=== PATIENT | male | born 1940 | race Caucasian/White ===

== ENCOUNTER 2023-04-18 09:02 | Outpatient (RCR) | payer MEDICARE, OTHER, SELFPAY ==
--- NOTE | 2023-04-18 16:49 | CON.ORTHO ---
Consultation - Orthopedics
History
Pt is now 4 months s/p left RSA. Has had increased erythema and induration of incision, and after discussion with his PT, we sent him to the ED. Has had increasing pain and discomfort for several weeks, no fevers/chills/sweats. Has had low energy,
but under care of painter chassis who are working up cardiac status.
Allergies / Home Medications
Allergy/AdvReac Type Severity Reaction Status Date / Time
carvedilol Allergy Unknown Verified 04/18/23 09:27
codeine Allergy Unknown Verified 04/18/23 09:27
hydrochlorothiazide Allergy lightheaded Verified 04/18/23 09:27
ness
metoprolol Allergy Unknown Verified 04/18/23 09:27
promethazine Allergy Unknown Verified 04/18/23 09:27
propranolol Allergy lightheaded Verified 04/18/23 09:27
ness
Sulfa (Sulfonamide Allergy SEE BELOW Verified 04/18/23 09:27
Antibiotics)
sulfamethoxazole Allergy SEE BELOW Verified 04/18/23 09:27
Medication Instructions Recorded
ascorbic acid (vitamin C) 500 mg 500 mg PO DAILY Supplement 11/16/19
tablet (Vitamin C)
cholecalciferol (vitamin D3) 25 1,000 unit PO DAILY Supplement 11/16/19
mcg (1,000 unit) capsule (Vitamin
D3)
cyanocobalamin (vitamin B-12) 2,500 mcg PO DAILY Supplement 11/16/19
2,500 mcg tablet
vilazodone 40 mg tablet (Viibryd) 40 mg PO DAILY Mental 11/16/19
Health/Anxiety
aripiprazole 5 mg tablet (Abilify) 5 mg PO DAILY Mental Health/Anxiety 01/22/21
dapagliflozin propanediol 10 mg 10 mg PO DAILY Heart Failure 01/22/21
tablet (Farxiga)
Super Clense 1 tab PO DAILY Supplement 12/23/22
atorvastatin 10 mg tablet 10 mg PO HS High Cholesterol 12/23/22
linaclotide 72 mcg capsule 72 mcg PO DAILY constipation 12/23/22
(Linzess)
acetaminophen 500 mg tablet 1,000 mg PO Q6H pain 01/15/23
(Acetaminophen Extra Strength)
clonazepam 0.5 mg tablet 0.25 mg PO BIDPRN PRN anxiety 01/15/23
hydromorphone 2 mg tablet 2 mg PO Q6HPRN PRN moderate-severe 01/15/23
(Dilaudid) pain
apixaban 5 mg tablet (Eliquis) 5 mg PO BID 30 days #60 tabs 01/18/23
polyethylene glycol 3350 17 gram 17 g PO DAILY 30 days #30 ea 01/18/23
oral powder packet (HealthyLax)
coQ10 (ubiquinol) 100 mg capsule 200 mg PO DAILY Supplement 02/13/23
multivitamin 1 tab PO DAILY Supplement 02/13/23
furosemide 80 mg tablet 80 mg PO DAILY PRN Fluid 02/19/23
retention/Swelling #0 tabs
sacubitril 49 mg-valsartan 51 mg 1 tab PO BID #60 tabs 02/19/23
tablet (Entresto)
cephalexin 500 mg capsule 500 mg PO QID #40 caps 04/18/23
Vital Signs / Lab Results
Left shoulder has tender, indurated wound. distal neuro vasc intact
Aspirated incision and obtained 5 ml purulent appearing fluid. Sent to lab for cultures.
Assessment / Plan
While he is not toxic, and relatively comfortable, I am concerned about a possible PJI. We will await culture results, if positive, will recommend revision surgery. Follow up in one week. Will start abx treatment now that cultures have been
obtained.
== END 2023-04-18 23:59 | disposition home or self-care (01) ==
LOC: RPT 09:02
PROVIDERS: ATTENDING PHYSICIAN Specialist; FAMILY PHYSICIAN Internal Medicine Geriatric Medicine
DX: Z47.1 Aftercare following joint replacement surgery (principal); I89.0 Lymphedema, not elsewhere classified; R26.2 Difficulty in walking, not elsewhere classified; Z73.6 Limitation of activities due to disability; M25.512 Pain in left shoulder; M62.81 Muscle weakness (generalized); Z96.612 Presence of left artificial shoulder joint
CPT/HCPCS: 97110; 97140; 97530

== ENCOUNTER 2023-04-29 06:32 | Inpatient (IN) | payer MEDICARE, OTHER, SELFPAY ==
[2023-04-29] VITALS (11 sets, daily range): BP systolic 114–146; BP diastolic 82–96; BMI 29.1
[2023-04-29] MEDS: TYLENOL 1000 MG PO (12:51)
[2023-04-29 13:08] LABS: Glucose - Point of Care 96 mg/dl (70-99)
--- NOTE | 2023-04-29 13:49 | TRANSFER ---
Pt brought to OR holding. Pt on monitor, [employer] came and turned off device. Report given, pt on monitor. PASSENGER INTERLINE CLERK @ bedside.
[2023-04-29] MEDS: DILAUDID 0.5 MG IV (17:54)
[2023-04-29] MEDS: NSS 1000 IV (18:14)
--- NOTE | 2023-04-29 18:33 | PTCARENOTE ---
Pt arrived to [facility] from PACU s/p L shoulder revision/ L shoulder NWB, aquacel with abd pads and tape, sling in place. NV intact. Pt drowsy but AAOx3. pt denies pain at this time. Pt oriented to call delvalle and room, bed locked and in lowest
position, call delvalle within reach.
[2023-04-29] MEDS: TYLENOL PO (19:58)
[2023-04-29] MEDS: FARXIGA PO (19:58)
[2023-04-29] MEDS: ASPIRIN 325 MG PO (20:01)
[2023-04-29] MEDS: BACTROBAN 2% OINTMENT 1 APPLIC NASAL (20:01)
[2023-04-29] MEDS: KLONOPIN 0.25 MG PO (20:54)
[2023-04-29] MEDS: ELIQUIS 2.5 MG PO (20:54)
[2023-04-29] MEDS: COLACE 100 MG PO (20:54)
[2023-04-29] MEDS: ULTRAM 50 MG PO (20:54)
[2023-04-29] MEDS: TYLENOL 650 MG PO (20:54)
[2023-04-29] MEDS: ENTRESTO 49 MG/51 MG 1 TAB PO (20:55)
[2023-04-29] MEDS: SENOKOT 17.1999999999999993 MG PO (20:55)
[2023-04-29] MEDS: ANCEF 5 IV (21:14)
[2023-04-29] MEDS: CRESTOR 10 MG PO (21:16)
[2023-04-29] MEDS: NEURONTIN 300 MG PO (21:16)
[2023-04-30] VITALS (7 sets, daily range): BP systolic 103–165; BP diastolic 64–90; PULSE 83; O2SAT 94
[2023-04-30] MEDS: TYLENOL 650 MG PO ×6 (00:12→21:02)
[2023-04-30] MEDS: ANCEF 5 IV (05:52)
[2023-04-30] MEDS: LINZESS PO (05:55)
[2023-04-30] MEDS: ELIQUIS 2.5 MG PO ×2 (09:03→21:02)
[2023-04-30] MEDS: KLONOPIN 0.25 MG PO ×2 (09:03→21:03)
[2023-04-30] MEDS: BACTROBAN 2% OINTMENT 1 APPLIC NASAL ×2 (09:03→21:09)
[2023-04-30] MEDS: COLACE 100 MG PO ×2 (09:03→21:02)
[2023-04-30] MEDS: ASPIRIN 325 MG PO (09:04)
[2023-04-30] MEDS: ULTRAM 50 MG PO ×2 (09:05→19:44)
[2023-04-30] MEDS: SENOKOT 17.1999999999999993 MG PO ×2 (09:05→21:02)
[2023-04-30] MEDS: ABILIFY 5 MG PO (09:06)
[2023-04-30] MEDS: ENTRESTO 49 MG/51 MG 1 TAB PO ×2 (09:06→21:05)
[2023-04-30] MEDS: FARXIGA 10 MG PO (09:06)
[2023-04-30] MEDS: STERILE WATER FOR INJECTION 20 ML IV (09:09)
[2023-04-30] MEDS: ROCEPHIN 2000 MG IV (09:09)
--- NOTE | 2023-04-30 09:22 | CON.ID ---
Consultation
-
Date/Time Consultation Requested: April 29, 2023 1245
Date/Time Consultation Performed: April 30, 2023 0920
Requesting Provider: Dr. Clifford Nunez
Performing Provider: Dr. Vlima Mcfarlane
Reason for Consultation: shoulder PJI
Chief Complaint / Past History
Chief Complaint
shoulder infection
History of Present Illness
82-year-old male with history of bioprosthetic aortic valve replacement, A-fib, pacemaker/ICD the placement, who recently underwent left shoulder reverse arthroplasty on January 10, 2023. Per , he immediately had issues with the left shoulder
and arm which was significantly edematous, black and blue. No fevers or chills. However he felt malaise. He was going to physical therapy. The left upper extremity edema eventually improved. PT noted erythema and a fluctuant induration over the
left shoulder incision. On April 18 he was sent to the ER. Ortho aspirated the joint. Subsequently the culture came back positive for Cutibacterium acne. Yesterday he underwent 1 stage left total shoulder revision of both the humeral and
glenoid components. OR report only minimal purulent material encountered, joint looked healthy. Today patient reports postop pain well-tolerated. He has no other complaints.
Past History
Additional Past Medical History:
Mild COPD.
Hypertension.
HFrEF
Tissue aortic valve replacement complicated by
� � sternal dehiscence, status post repair.
Afib
Pacemaker and defibrillator placement.
Non-obstructive CAD
Hypertension.
Depression.
Hernia repair.
Bilateral total hip replacement.
Left shoulder reverse arthroplasty (01/10/23)
Two parathyroidectomies.
Partial thyroidectomy.
Allergy History:
carvedilol Allergy (Verified 04/29/23 15:39)
DEPRESSION
codeine Allergy (Verified 04/29/23 15:39)
SEDATED
hydrochlorothiazide Allergy (Verified 04/29/23 15:39)
Unknown
metoprolol Allergy (Verified 04/29/23 15:39)
DEPRESSION
promethazine Allergy (Verified 04/29/23 15:39)
SEDATED
Sulfa (Sulfonamide Antibiotics) Allergy (Verified 04/29/23 15:39)
Unknown
Medications Reviewed: Yes
Current Antibiotics:
cefazolin
Social History
Tobacco: Non-Smoker
Alcohol: None
Drug: None
Personal:
Employment: Employed
Family History
Family History: Not Pertinent
Review of Systems
Review of Systems
General: Negative Fever, Chills or Change in Appetite
HEENT: Pharyngitis (mild post-op); Negative Sinus Problems or Headache
Cardiovascular: Negative Chest Pain
Respiratory: Negative Dyspnea, Cough or Sputum Production
Gasteroenterology: Other (no diarrhea); Negative Nausea or Vomiting
Genital / Urological: Negative Dysuria or Flank Pain
Endocrine: Weakness; Negative Fatigue
Skin / Hair / Nails: Negative Rash
Neurological: Negative Headache or Dizziness
All systems: All other systems were reviewed and were negative
Vital Signs
Temp Pulse Resp BP Pulse Ox
97.8 F 82 17 143/83 91
04/30/23 07:02 04/30/23 07:02 04/30/23 07:02 04/30/23 07:02 04/30/23 07:02
Physical Exam
Physical Exam
Constitutional: No Acute Distress and Comfortable
Eyes: No Conjunctival Hemorrhage and Sclera Anicteric
Cardiovascular: Regular Rate and S1/S2
Pulmonary: Clear
Gastrointestinal: Soft, Non Tender and Non Distended
Genito-Urinary: Negative CVA Tenderness
Extremities: Negative Edema
Wound: Other (left shoulder dressing dry)
Neurological: AO x 3
Microbiology Results
Micro:
04/29/23 18:20 Wound Culture - Pending
Joint Gram Stain - Preliminary
04/29/23 18:20 Anaerobic Culture - Pending
Joint
Assessment / Plan
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
-04/19/22 s/p 1 stage revision
- Start ceftriaxone 2gIV q24h x 6 weeks through 06/10/23, then another 6 weeks po abx.
follow weekly CRP, CBC, CMP
- Ordered PICC.
- Home infusion sheet submitted to Game Designer/Creative Director.
[2023-04-30] MEDS: ROXICODONE 5 MG PO ×2 (10:29→16:24)
--- NOTE | 2023-04-30 10:31 | W.PN.ORTHO ---
Today's Communication / Plan
-
d/c when stable
Assessment
.
Distal Motor Intact: Yes
Dressing:
Clean, dry and intact.
Assessment:
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
L Reverse TSA 01/10/23
--04/18/23 labs: ESR 15, CRP 13.40--will trend
--P. acnes on pre-op culture-intraoperative culture pending--ID consulted-on Rocephin
Persistent Afibb
AVR-tissue
[id number]
LBBB
BivICD
LY-LVzFT-26-45% by echo 01/2023-monitor daily weight--IVF rate reduced and now d/c---continue Entresto, Farxiga-Lasix prn
-stable on tele
Plan
.
Surgery / Date: L TSA Revision 04/29/23-Dr. Nunez
DVT Prophylaxis: Other (Eliquis 2.5mg bid--on POD#3-resume 5mg bid dosing)
Activity:
Out of bed.
PT/OT
Discharge Plan: Home w/ VN
Subjective
.
.:
Patient resting comfortably.
Vital Signs and Labs
.
Vital Signs and Labs:
Temp Pulse Resp BP Pulse Ox
97.8 F 82 17 143/83 91
04/30/23 07:02 04/30/23 07:02 04/30/23 07:02 04/30/23 07:02 04/30/23 07:02
Non-invasive Hgb result: 14.5
Physical Exam
-
HEENT: No pallor, cyanosis, or jaundice. Throat clear.
NECK: Supple. No JVD.
RESPIRATORY: Lungs clear to auscultation.
CVS: S1, S2 irreg.� No murmur, rub or gallop.
ABDOMEN: Soft, non-tender. No distension. BS+/normal.
EXTREMITIES: strength equal, no calf pain with palpation
INGOT STRIPPER: AOx3. No focal deficits. evaluation analyst grossly intact
--- NOTE | 2023-04-30 10:44 | CM ---
Addendum entered by Demetria Fontenot 04/30/23 16:22:
Per Sarika from [facility], patient has a $250.00 deductible; then covered 80%
Once out of pocket is met patient is covered @ 100%
Most likely after hospitalization, no out of pocket expense will be incurred
Addendum entered by Demetria Fontenot 04/30/23 13:32:
Home Care referral to [facility] accepted by the [facility] Office
Addendum entered by Demetria Fontenot 04/30/23 12:23:
CM spoke with Sarika from [facility] via phone; clinicals and demographics faxed to #[phone]
[facility]
Original Note:
Met with patient at bedside; Initial Assessment and CM Consult complete
Pharmacy: [facility]
Family Physician: Abdullahi Ogden, [facility], #
Patient reports he lives with his in a [place] with Basement; 3 steps to enter; 12 steps down to basement; bathroom has stall shower with seat and grab bar
PLOF: independent with ambulation; needs assistance with ADLs for the past 4 months; left arm in a sling; not able to drive
SNF/Rehab utilization history: none
Transport: will transport home via private car when stable
Per patient, PICC to be inserted today
Plan: discharge to home when medically stable with Home Infusion and VN; referral for home infusion sent to [facility]; VN referral sent to [facility]
[2023-04-30 11:38] LABS: INR 1.25; PT 15.8 Sec (11.4-14.6)
--- NOTE | 2023-04-30 16:39 | PTCARENOTE ---
Vascular access team called Rn. PADILLA to use PICC. Right peripheral discontinued.
[2023-04-30] MEDS: ROXICODONE 10 MG PO (21:03)
[2023-04-30] MEDS: CRESTOR 10 MG PO (21:09)
[2023-04-30] MEDS: NEURONTIN 300 MG PO (21:09)
[2023-05-01] MEDS: TYLENOL PO (00:30)
[2023-05-01] MEDS: ROXICODONE 10 MG PO ×2 (02:47→06:46)
[2023-05-01 03:30] VITALS: BP 139/74
[2023-05-01] MEDS: TYLENOL 650 MG PO ×3 (04:08→12:01)
[2023-05-01 06:00] VITALS: BMI 30.6
[2023-05-01] MEDS: LINZESS 72 MCG PO (06:45)
[2023-05-01 07:40] VITALS: BP 128/77
[2023-05-01 07:44] LABS: Blood Urea Nitrogen 17 mg/dl (9-20); Calcium 8.5 mg/dl (8.4-10.2); Carbon Dioxide 25 mmol/L (22-30); Chloride 106 mmol/L (98-107); Estimated Creatinine Clearance 72 ml/min; Glucose 93 mg/dl (70-99); Sodium 134 mmol/L (135-145); eGFR > 60.00
[2023-05-01] MEDS: ELIQUIS 2.5 MG PO (09:16)
[2023-05-01] MEDS: SENOKOT 17.1999999999999993 MG PO (09:16)
[2023-05-01] MEDS: COLACE 100 MG PO (09:16)
[2023-05-01] MEDS: KLONOPIN 0.25 MG PO (09:16)
[2023-05-01] MEDS: FARXIGA 10 MG PO (09:16)
[2023-05-01] MEDS: ASPIRIN 325 MG PO (09:16)
[2023-05-01] MEDS: ROCEPHIN 2000 MG IV (09:16)
[2023-05-01] MEDS: ENTRESTO 49 MG/51 MG 1 TAB PO (09:16)
[2023-05-01] MEDS: ULTRAM 50 MG PO (09:16)
[2023-05-01] MEDS: ABILIFY 5 MG PO (09:16)
[2023-05-01] MEDS: STERILE WATER FOR INJECTION 20 ML IV (09:17)
--- NOTE | 2023-05-01 09:33 | CM ---
Addendum entered by Demetria Fontenot 05/01/23 13:40:
IMM explained and signed
Addendum entered by Demetria Fontenot 05/01/23 10:06:
Patient can be discharged any time today; [facility] will deliver infusion equipment after 5 PM today
Care Team RN notified via [place] [facility]
Addendum entered by Demetria Fontenot 05/01/23 09:36:
Plan: Discharge to Home today; will provide transport
Fax Discharge Summary to [facility]; [facility] Office; fax #[phone]
Original Note:
Plan: Discharge to Home today with services from [facility] and [facility]
Clinicals faxed to [facility] # [phone]; and [facility] #[phone]
--- NOTE | 2023-05-01 10:39 | W.PN.ID1 ---
Date of Service
Date of Service: May 01, 2023
Today's Communication
OK for dc from ID standpoint.
Assessment / Plan
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
-04/19/22 s/p 1 stage revision
- Start ceftriaxone 2gIV q24h x 6 weeks through 06/10/23, then another 6 weeks po abx.
follow weekly CRP, CBC, CMP
-Home Infusion set up.
-OK for dc from ID standpoint.
-Follow-up with me in 4 to 6 weeks.
#Additional Past Medical History:
Mild COPD.
Hypertension.
HFrEF
Tissue aortic valve replacement complicated by
� � sternal dehiscence, status post repair.
Afib
Pacemaker and defibrillator placement.
Non-obstructive CAD
Hypertension.
Depression.
Hernia repair.
Bilateral total hip replacement.
Left shoulder reverse arthroplasty (01/10/23)
Two parathyroidectomies.
Partial thyroidectomy.
Chief Complaint
-: Other (PJI)
Subjective / Review of Systems
+ Post-op pain
Vital Signs / Physical Exam
Vital Signs
Vital Signs
Temp Pulse Resp BP Pulse Ox
97.4 F 82 18 128/77 94
05/01/23 07:40 05/01/23 07:40 05/01/23 07:40 05/01/23 07:40 05/01/23 07:40
Physical Exam
Constitutional: No Acute Distress
Cardiovascular: Regular Rate and S1/S2
Pulmonary: Clear
Gastrointestinal: Non Tender, Non Distended and Normal Bowel Sounds
Extremities: Negative Edema
Neurological: AO x 3
Lines: PICC (RUE intact)
Objective Data
Lab Data
Lab Results
05/01/23 06:21
PT 15.8 Sec (11.4-14.6) H 04/30/23 11:03
INR 1.25 04/30/23 11:03
Estimated Creat Clear 72 ml/min 05/01/23 06:21
Most recent labs reviewed.
Micro Results:
04/29/23 18:20 Wound Culture - Preliminary
Joint No growth
Gram Stain - Preliminary
04/29/23 18:20 Anaerobic Culture - Preliminary
Joint Culture pending. Anaerobic cultures are examined after 3
days incubation. Additional information to follow.
[2023-05-01 11:01] VITALS: BMI 30.9
--- NOTE | 2023-05-01 11:16 | W.PN.ORTHO ---
Today's Communication / Plan
-
d/c
Assessment
.
Distal Motor Intact: Yes
Dressing:
Clean, dry and intact.
Assessment:
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
L Reverse TSA 01/10/23
--04/18/23 labs: ESR 15, CRP 13.40--will trend weekly w/ CMP OP
--P. acnes on pre-op culture-intraoperative final culture pending--IV Rocephin x 6 weeks, then oral suppression-f/u ID 4 weeks
Persistent Afibb
AVR-tissue
[id number]
LBBB
BivICD
WF-RRdWB-83-45% by echo 01/2023---IVF rate reduced and now d/c--weight up >5lbs -Lasix 20mg IV then resume as previous at home-asymptomatic, no clinical indication of acute volume overload--continue Entresto, Farxiga
-stable on tele
Plan
.
Surgery / Date: L TSA Revision 04/29/23-Dr. Nunez
DVT Prophylaxis: Other (Eliquis)
Activity:
Out of bed.
PT/OT
Discharge Plan: Home w/ VN
Subjective
.
.:
Patient resting comfortably.
Vital Signs and Labs
.
Vital Signs and Labs:
Lab Results
05/01/23 06:21
Temp Pulse Resp BP Pulse Ox
97.4 F 82 18 128/77 94
05/01/23 07:40 05/01/23 07:40 05/01/23 07:40 05/01/23 07:40 05/01/23 07:40
PT 15.8 Sec (11.4-14.6) H 04/30/23 11:03
INR 1.25 04/30/23 11:03
Non-invasive Hgb result: 14.5
Physical Exam
-
HEENT: No pallor, cyanosis, or jaundice. Throat clear.
NECK: Supple. No JVD.
CVS: S1, S2 i.� Irreg.
ABDOMEN: Soft, non-tender. No distension. BS+/normal.
EXTREMITIES: strength equal, no calf pain with palpation
CERTIFIED CYTOTECHNOLOGIST: AOx3. No focal deficits. croze cutter grossly intact
--- NOTE | 2023-05-01 11:37 | W.DS.TRANS ---
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
-
Discharge Instructions:
Discharge Diagnosis/Procedures PJI--L TSA Revision Dr. Nunez 04/29/23
Diet As tolerated,Restrict fluids to 64 oz
Activity No strenuous activity
Driving Restrictions No driving
Blood Work CRP, ESR, CMP--result to Dr. Vilma Mcfarlane ID
Other Services VN
Specialty Instructions Weigh Daily
Instructions:
Stand-Alone Forms: Total Shoulder Replacement D/C
Changes to Home Medications: Yes
Discharge Medications:
DC Medications w/original date entered in [facility]
ascorbic acid (vitamin C) 500 mg tablet (Vitamin C) 500 mg PO DAILY Supplement 11/16/19
cholecalciferol (vitamin D3) 25 mcg (1,000 unit) capsule (Vitamin D3) 1,000 unit PO DAILY Supplement 11/16/19
cyanocobalamin (vitamin B-12) 2,500 mcg tablet 2,500 mcg PO DAILY Supplement 11/16/19
vilazodone 40 mg tablet (Viibryd) 40 mg PO DAILY Mental Health/Anxiety 11/16/19
aripiprazole 5 mg tablet (Abilify) 5 mg PO DAILY Mental Health/Anxiety 01/22/21
dapagliflozin propanediol 10 mg tablet (Farxiga) 10 mg PO DAILY Heart Failure 01/22/21
linaclotide 72 mcg capsule (Linzess) 72 mcg PO DAILY constipation 12/23/22
clonazepam 0.5 mg tablet 0.25 mg PO BIDPRN PRN anxiety 01/15/23
apixaban 5 mg tablet (Eliquis) 5 mg PO BID 30 days #60 tabs 01/18/23
multivitamin 1 tab PO DAILY Supplement 02/13/23
sacubitril 49 mg-valsartan 51 mg tablet (Entresto) 1 tab PO BID #60 tabs 02/19/23
rosuvastatin 10 mg tablet 10 mg PO HS High Cholesterol 04/28/23
polyethylene glycol 3350 17 gram oral powder packet (HealthyLax) 17 g PO DAILY Constipation 04/30/23
acetaminophen 500 mg tablet (Acetaminophen Extra Strength) 1,000 mg PO QID pain #0 tabs 05/01/23
ceftriaxone 2 gram solution for injection 2,000 mg IV Q24H Infection #42 ea 05/01/23
docusate sodium 100 mg capsule (Colace) 100 mg PO BID stool softner #1 cap 05/01/23
furosemide 80 mg tablet 80 mg PO PRN PRN Fluid retention/Swelling #0 tabs 05/01/23
gabapentin 300 mg capsule 300 mg PO HS sleep/pain #10 caps 05/01/23
magnesium hydroxide 400 mg/5 mL oral suspension (Milk of Magnesia) 30 ml PO HS PRN Constipation #1 mL 05/01/23
oxycodone 5 mg tablet 5 - 10 mg PO Q6HPRN PRN 1 tab moderate-2 tabs severe pain #30 tabs 05/01/23
sennosides 8.6 mg tablet (Senokot) 17.2 mg PO BID laxative #2 tabs 05/01/23
Home Medication Changes
ceftriaxone 2 gram solution for injection 2,000 mg IV Q24H Infection #42 ea 05/01/23
gabapentin 300 mg capsule 300 mg PO HS sleep/pain #10 caps 05/01/23
oxycodone 5 mg tablet 5 - 10 mg PO Q6HPRN PRN 1 tab moderate-2 tabs severe pain #30 tabs 05/01/23
Pending Results: Yes (Intraop final culture)
[2023-05-01] MEDS: LASIX 20 MG IV (12:01)
== END 2023-05-01 13:35 | disposition home health service (06) | DRG 483 ==
LOC: 2 SOUTH 06:32
PROVIDERS: Physician Assistant Medical; ADMITTING PHYSICIAN Specialist; CONSULT PHYSICIAN Internal Medicine Infectious Disease
PROC: 0RRK0JZ Replacement of Left Shoulder Joint with Synthetic Substitute, Open Approach (ICD-10-PCS; 2023-04-29)
PROC: 0RPK0JZ Removal of Synthetic Substitute from Left Shoulder Joint, Open Approach (ICD-10-PCS; 2023-04-29)
DX: T84.59XA Infection and inflammatory reaction due to other internal joint prosthesis, initial encounter (principal); I48.19 Other persistent atrial fibrillation; I42.9 Cardiomyopathy, unspecified; I50.22 Chronic systolic (congestive) heart failure; I25.10 Atherosclerotic heart disease of native coronary artery without angina pectoris; I44.7 Left bundle-branch block, unspecified; Y81.2 Prosthetic and other implants, materials and accessory general- and plastic-surgery devices associated with adverse incidents
CPT/HCPCS: 71045; 73020; 80048; 82962; 83036; 85025; 85610; 85652; 86140; 86850; 86900; 86901; 87070; 87075; 87076; 87205; 97110; 97165; 97535; C1713; C1776

== ENCOUNTER 2023-06-27 13:50 | Outpatient (RCR) | payer MEDICARE, OTHER, SELFPAY | END 2023-06-27 23:59 | disposition home or self-care (01) | LOC: RPT 13:50 | PROVIDERS: ATTENDING PHYSICIAN Specialist; FAMILY PHYSICIAN Internal Medicine Geriatric Medicine | DX: Z47.89 Encounter for other orthopedic aftercare (principal); Z47.1 Aftercare following joint replacement surgery (principal); I89.0 Lymphedema, not elsewhere classified; M25.512 Pain in left shoulder; R29.3 Abnormal posture; Z96.612 Presence of left artificial shoulder joint | CPT/HCPCS: 97110; 97140; 97162; 97530 ==

== ENCOUNTER 2023-07-24 18:58 | Outpatient (RCR) | payer MEDICARE, OTHER, SELFPAY | END 2023-07-24 23:59 | disposition home or self-care (01) | LOC: RPT 18:58 | PROVIDERS: ATTENDING PHYSICIAN Specialist; FAMILY PHYSICIAN Internal Medicine Geriatric Medicine | DX: Z47.89 Encounter for other orthopedic aftercare (principal); I89.0 Lymphedema, not elsewhere classified; M25.512 Pain in left shoulder; R29.3 Abnormal posture; Z96.612 Presence of left artificial shoulder joint | CPT/HCPCS: 97110; 97530 ==

== ENCOUNTER 2023-08-28 11:54 | Outpatient (RCR) | payer MEDICARE, OTHER, SELFPAY | END 2023-08-28 23:59 | disposition home or self-care (01) | LOC: RPT 11:54 | PROVIDERS: ATTENDING PHYSICIAN Specialist; FAMILY PHYSICIAN Internal Medicine Geriatric Medicine | DX: Z47.89 Encounter for other orthopedic aftercare (principal); I89.0 Lymphedema, not elsewhere classified; M25.512 Pain in left shoulder; R29.3 Abnormal posture; Z96.612 Presence of left artificial shoulder joint | CPT/HCPCS: 97110; 97530 ==

== ENCOUNTER 2023-09-11 16:27 | Outpatient (RCR) | payer MEDICARE, OTHER, SELFPAY | END 2023-09-11 23:59 | disposition home or self-care (01) | LOC: RPT 16:27 | PROVIDERS: ATTENDING PHYSICIAN Specialist; FAMILY PHYSICIAN Internal Medicine Geriatric Medicine | DX: Z47.89 Encounter for other orthopedic aftercare (principal); I89.0 Lymphedema, not elsewhere classified; M25.512 Pain in left shoulder; R29.3 Abnormal posture; Z96.612 Presence of left artificial shoulder joint | CPT/HCPCS: 97110; 97530 ==

== ENCOUNTER 2023-09-15 08:52 | Emergency (ER) | payer MEDICARE, OTHER, SELFPAY ==
[2023-09-15 09:00] VITALS: BP 149/90
--- NOTE | 2023-09-15 09:49 | ED.GENMED ---
History of Present Illness
General
Chief Complaint: Weakness
Source: patient and spouse
Exam Limitations: none
Time Seen by Provider: 09/15/23 09:28
Nursing documentation reviewed up to this point in time: agreed with
Travel History
Have you had any contact with someone who has COVID-19?: Yes
Comment: ukn
Do you have any symptoms of coronavirus? Fever > 100 degrees, chills, cough, shortness of breath, sore throat, loss of taste or smell, muscle aches, or headache?: Yes
Symptoms:: bodyache
History of Present Illness
History of Present Illness:
Patient is an 83-year-old male with history of sleep apnea COPD does not wear home O2 aortic stenosis CHF CAD pacemaker A-fib on Eliquis presents to the ER for evaluation. reports patient had cough for the past several days and has aches.
Tested positive for COVID yesterday and presents to the ER today with worsening shortness of breath and bodyaches. has had low grade fever.
She does report the patient's normal pulse ox is around 93% on room air.
Past History
Past History
ED Past Medical History: CHF, HTN, Hypercholesterolemia, Psychiatric (depression) and Other (Arthritis, the orthopedic felt replacement with a bio valve, left bundle branch block, cardiomyopathy, depression)
ED Past Surgical History: Cardiac (Aortic valve replaced) and Other (Hernia repair, aortic valve replacement with a bovine valve, sternal dehiscence with repeat operation, status post bilateral hip replacements)
Social History
Tobacco: Non-smoker
Alcohol: Occasional
Drug: None
Personal:
Living: with family
Family History
Family History: Other (Mother with rheumatoid arthritis)
Review of Systems
Review of Systems
Allergies reviewed?: Yes
All Other Systems: ROS reviewed and negative except as documented in HPI and ROS
Constitutional: Reports fatigue
Respiratory: Reports cough
Cardiac: Reports no symptoms
ABD/GI: Reports no symptoms
: Reports no symptoms
Musculoskeletal: Reports no symptoms
Skin: Reports no symptoms
Neurological: Reports no symptoms
Psychiatric: Reports no symptoms
Phy Exam
General Physical Exam
General Presentation: no apparent distress
General Skin: warm and dry
General Habitus: elderly
General Mental: alert
General Hydration: appears well hydrated
Cardiovascular Exam
Cardiovascular Exam: regular rate/rhythm
Pulmonary Exam
Pulmonary Exam: lungs clear, no respiratory distress and other (+ non productive cough )
Neurological Exam
Neurological Exam: alert and oriented x3
Musculoskeletal Exam
Musculoskeletal Exam: full ROM
Skin Exam
Skin Exam: normal color and warm/dry
Psychiatric Exam
Psychiatric Exam: normal mood/affect
Course
Orders/Labs/Results
Orders:
Orders
09/15/23 09:49
Electrocardiogram (*1) Stat
Reason for Study: Other
Other Reason for Exam: chest pain
EKG- Treatment ONCE
Chest [CR Chest - 2 Views ] Urgent
Comment:
Reason For Exam: SOB Covid +
09/15/23 09:51
Acetaminophen [Tylenol] 650 mg PO NOW STA
09/15/23 10:10
Basic Metabolic Panel Urgent
Complete Blood Count/With Diff Urgent
09/15/23 11:40
Potassium Urgent
Abnormal Lab Results
09/15/23
10:10
RDW 14.7 H %
(11.5-14.5)
Abs Immat Gran (auto) 0.1 H 10^3/uL
(0-0.05)
Absolute Lymphs (auto) 0.8 L 10^3/uL
(1.2-3.4)
Absolute Monos (auto) 1.3 H 10^3/uL
(0.1-0.6)
Immature Gran % 0.7 H %
(0-0.5)
Lymphocytes % 8.8 L %
(20.5-51.1)
Monocytes % 15.3 H %
(1.7-9.3)
09/15/23 10:10
09/15/23 11:40
Vital Signs
Initial and Last Documented VS:
Initial Vital Signs
Temp Pulse Resp BP Pulse Ox
100.6 F H 89 16 149/90 98
09/15/23 09:00 09/15/23 09:00 09/15/23 09:00 09/15/23 09:00 09/15/23 09:00
Last Documented Vital Signs
Temp Pulse Resp BP Pulse Ox
100.6 F H 89 16 149/90 98
09/15/23 09:00 09/15/23 09:00 09/15/23 09:00 09/15/23 09:00 09/15/23 09:00
MDM/Problems Addressed
MDM/Problems Addressed:
Patient is an 83-year-old male presents to the ER for evaluation. Patient has had COVID symptoms for the past several days tested positive yesterday. Patient does have a history of COPD has seen Him once in the past. He presents in no acute
distress. reports patient's pulse ox is normally 93% he has been 93 to 98% on room air here. He is in no acute distress he ambulated with no drop in pulse ox. Remained 93-95. His white count is normal there is no acute pneumonia on x-ray
his electrolytes are normal. Will DC with albuterol. reports that she does Dr. Ferro of pulmonology has given him an inhaler but is old. Will DC with albuterol inhaler as needed.
*Radiology
Radiology exam reviewed: radiology read reviewed
*Pulse Oximetry
Patient hypoxic: no
*Critical Care Note
Total Time (30-74mins, 75-104mins- exclusive of procedures): Not Applicable
ED Attending Note
-
Portions of this chart may have been created with voice recognition software.� Occasional wrong word or��sound alike� substitutions may have occurred due to the inherent limitations of voice recognition software.
Discharge Plan
Departure
Patient Disposition: Home (Routine Discharge)
Date of Disposition: 09/15/23
Time of Disposition: 12:33
Patient with high blood pressure during this ER visit?: Yes
Discharge Problem:
COVID-19
Instructions: COVID-19 ED, BLOOD PRESSURE
Prescriptions:
New
albuterol sulfate 90 mcg/actuation HFA aerosol inhaler
2 puff inhalation Q6H PRN (Reason: shortness of breath or wheezing) Qty: 6.7 0RF
No Action
ascorbic acid (vitamin C) [Vitamin C] 500 MG tablet
500 mg PO DAILY
cholecalciferol (vitamin D3) [Vitamin D3] 1,000 UNIT capsule
1,000 unit PO DAILY
vilazodone [Viibryd] 40 MG tablet
40 mg PO DAILY
cyanocobalamin (vitamin B-12) 2,500 MCG tablet
2,500 mcg PO DAILY
aripiprazole [Abilify] 5 MG tablet
5 mg PO DAILY
dapagliflozin propanediol [Farxiga] 10 MG tablet
10 mg PO DAILY
Linzess 72 mcg Capsule
72 mcg PO DAILY
clonazepam 0.5 mg Tablet
0.25 mg PO BIDPRN PRN (Reason: anxiety)
Patient Comments:
02/17/2023: last filled 01/03/23, 60 tabs for 30 days from [id number]
Eliquis 5 mg Tablet
5 mg PO BID 30 Days Qty: 60 0RF
multivitamin Tablet
1 tab PO DAILY
Entresto 49-51 mg Tablet
1 tab PO BID Qty: 60 0RF
rosuvastatin 10 mg Tablet
10 mg PO HS
polyethylene glycol 3350 [HealthyLax] 17 gram powder in packet
17 g PO DAILY
Rx Instructions:
hold if diarrhea
docusate sodium [Colace] 100 mg capsule
100 mg PO BID Qty: 1 0RF
magnesium hydroxide [Milk of Magnesia] 400 mg/5 mL suspension
30 ml PO HS PRN (Reason: Constipation) Qty: 1 0RF
gabapentin 300 mg capsule
300 mg PO HS Qty: 10 0RF
sennosides [Senokot] 8.6 mg tablet
17.2 mg PO BID Qty: 2 0RF
oxycodone 5 mg tablet
5 - 10 mg PO Q6HPRN PRN (Reason: 1 tab moderate-2 tabs severe pain) Qty: 30 0RF
Rx Instructions:
Dx surgery
ongoing therapy
Post-op use
acetaminophen [Acetaminophen Extra Strength] 500 mg tablet
1,000 mg PO QID Qty: 0 0RF
Rx Instructions:
DO NOT exceed >4000 mg daily.
furosemide 80 MG tablet
80 mg PO PRN PRN (Reason: Fluid retention/Swelling) Qty: 0 0RF
Rx Instructions:
gains 2-3 lbs overnight or 3-5 over a few days
*dose in am 05/02/23 at home*
ceftriaxone 2 gram Recon Soln
2,000 mg IV Q24H Qty: 42 0RF
Referrals:
Parrish Ferro MD [Active] -
Abdullahi Ogden MD [Family Provider] -
Activity Restrictions/Additional Instructions:
As discussed stay well-hydrated. Tylenol for fevers. You may use inhaler as needed. 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
return if any worsening of symptoms including shortness of breath.
Interventions
Interventions:
*General Assessment Last Done: 09/15/23 10:53
*Neglect/Abuse Screening Last Done: 09/15/23 10:53
ED- Fall Risk Assessment Last Done: 09/15/23 10:53
*ED COVID-19 Vaccine History Last Done: 09/15/23 09:00
ED- Cardiac Assessment Last Done: 09/15/23 10:53
ED- Neurological Assessment Last Done: 09/15/23 10:53
ED- Pulmonary Assessment Last Done: 09/15/23 10:53
Discharge Date and Time
Print Language: MAORI
[2023-09-15] MEDS: TYLENOL 650 MG PO (09:59)
[2023-09-15 10:27] LABS: % Basophils 0.3 % (0-2); % Eosinophils 0.5 % (0-6); % Immature Granulocytes 0.7 % (0-0.5); % Lymphocytes 8.8 % (20.5-51.1); % Monocytes 15.3 % (1.7-9.3); % Neutrophils 74.4 % (42.2-75.2); Absolute Immature Granulocytes 0.1 10^3/uL (0-0.05); Absolute Lymphocytes 0.8 10^3/uL (1.2-3.4); Absolute Monocytes 1.3 10^3/uL (0.1-0.6); Absolute Neutrophils 6.5 10^3/uL (1.4-6.5); Hematocrit 46.1 % (39.0-52.0); Hemoglobin 15.4 g/dL (13.0-18.0); Mean Corp Hgb Conc. 33.4 g/dL (33.0-37.0); Mean Corpuscular Hgb 29.4 pg (27.0-31.0); Mean Corpuscular Volume 88.1 fL (80.0-94.0); Mean Platelet Volume 9.3 fL (7.4-10.4); Nucleated Red Blood Cells % 0 % (-); Platelet Count 161 10^3/uL (130-400); Red Blood Cell Count 5.23 10^6/uL (4.70-6.10); Red Cell Dist. Width 14.7 % (11.5-14.5); White Blood Cell Count 8.7 10^3/uL (4.8-10.8)
[2023-09-15 10:39] LABS: Blood Urea Nitrogen 16 mg/dl (9-20); Calcium 8.8 mg/dl (8.4-10.2); Carbon Dioxide 26 mmol/L (22-30); Chloride 106 mmol/L (98-107); Glucose 95 mg/dl (70-99); Sodium 139 mmol/L (135-145); eGFR > 60.00
[2023-09-15 10:58] VITALS: BP 125/85
[2023-09-15 11:00] VITALS: BP 118/83
[2023-09-15 12:05] LABS: Potassium 3.8 mmol/L (3.5-5.1)
== END 2023-09-15 12:40 | disposition home or self-care (01) ==
LOC: EMR 08:52
PROVIDERS: Nurse Practitioner; EMERGENCY PHYSICIAN Emergency Medicine; FAMILY PHYSICIAN Internal Medicine Geriatric Medicine
DX: U07.1 COVID-19 (principal); G47.30 Sleep apnea, unspecified; I35.0 Nonrheumatic aortic (valve) stenosis; I11.0 Hypertensive heart disease with heart failure; I50.9 Heart failure, unspecified; I48.91 Unspecified atrial fibrillation; E78.00 Pure hypercholesterolemia, unspecified; F32.A Depression, unspecified; I42.9 Cardiomyopathy, unspecified; I44.7 Left bundle-branch block, unspecified; M19.90 Unspecified osteoarthritis, unspecified site; J44.9 Chronic obstructive pulmonary disease, unspecified; Z79.01 Long term (current) use of anticoagulants; Z95.3 Presence of xenogenic heart valve; Z96.643 Presence of artificial hip joint, bilateral; Z95.810 Presence of automatic (implantable) cardiac defibrillator; Z87.891 Personal history of nicotine dependence; Z85.828 Personal history of other malignant neoplasm of skin; Z85.850 Personal history of malignant neoplasm of thyroid; Z88.5 Allergy status to narcotic agent; Z88.2 Allergy status to sulfonamides; Z88.8 Allergy status to other drugs, medicaments and biological substances
CPT/HCPCS: 99283; 71046; 80048; 84132; 85025; 93005

== ENCOUNTER 2023-10-01 14:05 | Outpatient (RCR) | payer MEDICARE, OTHER, SELFPAY | END 2023-10-01 15:11 | disposition home or self-care (01) | LOC: RPT 14:05 | PROVIDERS: ATTENDING PHYSICIAN Specialist; FAMILY PHYSICIAN Internal Medicine Geriatric Medicine | DX: M25.512 Pain in left shoulder (principal); Z47.1 Aftercare following joint replacement surgery (principal); R29.3 Abnormal posture; I89.0 Lymphedema, not elsewhere classified; Z96.612 Presence of left artificial shoulder joint; Z47.89 Encounter for other orthopedic aftercare; Z86.16 Personal history of COVID-19 | CPT/HCPCS: 97530 ==

== ENCOUNTER 2023-10-02 08:27 | Emergency (ER) | payer MEDICARE, OTHER, SELFPAY ==
[2023-10-02 08:29] VITALS: BP 146/97
--- NOTE | 2023-10-02 08:50 | ED.GENMED ---
History of Present Illness
General
Chief Complaint: Breathing Problem
Source: patient
Exam Limitations: none
Time Seen by Provider: 10/02/23 08:41
Nursing documentation reviewed up to this point in time: agreed with
History of Present Illness
History of Present Illness:
Patient is an 83year-old male past medical history of left bundle branch block with pacemaker, defibrillator, aortic valve replacement on Eliquis CHF anxiety depression ,
mild COPD not on oxygen diagnosed with sleep apnea this week presents to the ER with worsening shortness of breath. reports patient centered breath the past 3 weeks but getting worse. Patient reports he was very short of breath this morning.
11 home at bedside reports patient does have anxiety and there is a component of mild shortness of breath all the time but this has been getting worse over the past week. Patient denies any chest pain. He reports he feels shortness of breath
even with rest.
He did have COVID 2 weeks ago denies any recent fever or chills. Mild cough. Patient used to wear oxygen at nighttime but stopped using it
Patient does not wear oxygen. Patient's room pulse ox is around 93%.
Past History
Past History
ED Past Medical History: CHF, HTN, Hypercholesterolemia, Psychiatric (depression) and Other (Arthritis, the orthopedic felt replacement with a bio valve, left bundle branch block, cardiomyopathy, depression)
ED Past Surgical History: Cardiac (Aortic valve replaced) and Other (Hernia repair, aortic valve replacement with a bovine valve, sternal dehiscence with repeat operation, status post bilateral hip replacements)
Social History
Tobacco: Non-smoker
Alcohol: Occasional
Drug: None
Personal:
Living: with family
Family History
Family History: Other (Mother with rheumatoid arthritis)
Review of Systems
Review of Systems
Allergies reviewed?: Yes
All Other Systems: ROS reviewed and negative except as documented in HPI and ROS
Constitutional: Denies fever
EENT: Reports no symptoms
Respiratory: Reports cough and trouble breathing
Cardiac: Reports no symptoms
ABD/GI: Reports no symptoms
: Reports no symptoms
Musculoskeletal: Reports no symptoms
Skin: Reports no symptoms
Neurological: Reports no symptoms
Psychiatric: Reports no symptoms
Phy Exam
General Physical Exam
General Presentation: no apparent distress
General age: appears stated age
General Skin: warm and dry
General Habitus: normal
General Mental: alert
General Hydration: appears well hydrated
Cardiovascular Exam
Cardiovascular Exam: regular rate/rhythm, no murmur and normal peripheral pulses
Neurological Exam
Neurological Exam: alert and oriented x3
Musculoskeletal Exam
Musculoskeletal Exam: full ROM
Skin Exam
Skin Exam: normal color and warm/dry
Psychiatric Exam
Psychiatric Exam: normal mood/affect
Course
Orders/Labs/Results
Orders:
Orders
10/02/23 09:04
Electrocardiogram (*1) Stat
Reason for Study: Other
Other Reason for Exam: chest pain
Cardiac Monitoring- Treatment ONCE
EKG- Treatment ONCE
IV Insert/Care/Rem.- Treatment PRN
CR Chest - 2 Views Urgent
Comment:
Reason For Exam: sob
10/02/23 09:23
Complete Blood Count/With Diff Urgent
Comprehensive Metabolic Panel Urgent
NT-proBNP Urgent
Troponin I Urgent
Abnormal Lab Results
10/02/23
09:23
RDW 15.1 H %
(11.5-14.5)
Absolute Monos (auto) 1.0 H 10^3/uL
(0.1-0.6)
Lymphocytes % 17.2 L %
(20.5-51.1)
Monocytes % 12.4 H %
(1.7-9.3)
BUN 26 H mg/dl
(9-20)
Total Bilirubin 1.4 H mg/dl
(0.2-1.3)
10/02/23 09:23
10/02/23 09:23
Vital Signs
Initial and Last Documented VS:
Initial Vital Signs
Temp Pulse Resp BP Pulse Ox
98.4 F 72 18 146/97 93
10/02/23 08:29 10/02/23 08:29 10/02/23 08:29 10/02/23 08:29 10/02/23 08:29
Last Documented Vital Signs
Temp Pulse Resp BP Pulse Ox
98.4 F 81 27 138/94 92
10/02/23 08:29 10/02/23 10:00 10/02/23 10:00 10/02/23 10:00 10/02/23 10:45
MDM/Problems Addressed
Differential Diagnosis Includes:
Acute
MDM/Problems Addressed:
As documented patient is a 83-year-old male with significant history, cardiology pulmonology presents for shortness of breath worse over the past several weeks, However worse today. Patient has a history of sleep apnea and used to wear oxygen but
stopped it over a year ago. Patient is followed by pulmonary as well as cardiology. Patient presents here awake alert in no acute distress minimally anxious pulse ox between 90 to 93% which reports is normal. He reports he feels slightly better
here however he was very short of breath this morning. He has no history of being on a diuretic, his BNP is 1730 however chest x-ray negative.
Patient did ambulate pulse ox runs still between 90 to 93%. He does not feel however that he go home with symptoms of shortness of breath he feels that he would just come back tomorrow or even later today because of persistent symptoms. No acute
findings on EKG. troponin baseline, negative.
12pm as per admitting hospitalist , DR Domínguez, this admission would likely not be covered. I did speak with patient regarding this. He now does feel that he can go home however in order to ensure follow-up I will text cardiology for closer
follow-up. Patient remains in no acute distress here nontachypneic nonhypoxic nontachycardic.
12:13 d/c w/ DR Ritter can follow up as outpt
*Radiology
Radiology exam reviewed: radiology read reviewed
*Pulse Oximetry
Patient hypoxic: no
Data Reviewed
Review of Other/Old Records Reveals: Other (Echo from 2022 shows mild reduced LV systolic function left ventricular ejection fraction is 40-45% )
ED Attending Note
-
Portions of this chart may have been created with voice recognition software.� Occasional wrong word or��sound alike� substitutions may have occurred due to the inherent limitations of voice recognition software.
Discharge Plan
Departure
Patient Disposition: Home (Routine Discharge)
Date of Disposition: 10/02/23
Time of Disposition: 11:09
Patient with high blood pressure during this ER visit?: Yes
Covid-19: Not Applicable
Discharge Problem:
Acute dyspnea
Instructions: Shortness of Breath, Adult ED, Chest Pain CBC Follow Up
Prescriptions:
No Action
ascorbic acid (vitamin C) [Vitamin C] 500 MG tablet
500 mg PO DAILY
cholecalciferol (vitamin D3) [Vitamin D3] 1,000 UNIT capsule
1,000 unit PO DAILY
cyanocobalamin (vitamin B-12) 2,500 MCG tablet
2,500 mcg PO DAILY
aripiprazole [Abilify] 5 MG tablet
5 mg PO DAILY
dapagliflozin propanediol [Farxiga] 10 MG tablet
10 mg PO DAILY
Linzess 72 mcg Capsule
72 mcg PO DAILY@0600
clonazepam 0.5 mg Tablet
0.25 mg PO QIDPRN PRN (Reason: anxiety)
Patient Comments:
10/02/23: Pt and spouse state they were instructed by pt's physician to stop clonazepam since starting mirtazepine 15mg HS. Prior to stopping ~7 days ago, pt and spouse state pt typically would take 0.25mg QID
polyethylene glycol 3350 [HealthyLax] 17 gram powder in packet
17 g PO DAILY
Rx Instructions:
hold if diarrhea
atorvastatin 10 mg Tablet
10 mg PO DAILY
mirtazapine 15 mg Tablet
15 mg PO HS
Patient Comments:
10/02/23: Pt being transitioned from vilazodone to mirtazapine per patient and spouse. Mirtazapine started 6 days ago
vilazodone 10 mg Tablet
10 mg PO DAILY
Rx Instructions:
Taper off per provider. 10mg daily x4 days then stop
coQ10 (ubiquinol) 100 mg Capsule
200 mg PO DAILY
Belsomra 20 mg Tablet
20 mg PO HS
Patient Comments:
10/02/23: Per pt and spouse, started this 6 days ago for insomnia; received samples from physician
albuterol sulfate 90 mcg/actuation HFA aerosol inhaler
2 puff inhalation R Q6HPRN PRN (Reason: shortness of breath or wheezing)
Eliquis 5 mg tablet
5 mg PO BID
Entresto 49-51 mg tablet
1 tab PO BID
Referrals:
Abdullahi Ogden MD [Family Provider] -
Jim Negron MD [Active] -
Activity Restrictions/Additional Instructions:
Follow-up with cardiology as soon as possible. Call tomorrow for appointment return if any worsening of symptoms
Interventions
Interventions:
*Risk Screen - Suicide Last Done: 10/02/23 08:29
*General Assessment Last Done: 10/02/23 08:29
*Neglect/Abuse Screening Last Done: 10/02/23 08:29
ED- Fall Risk Assessment Last Done: 10/02/23 09:18
*ED COVID-19 Vaccine History Last Done: 10/02/23 09:18
ED- Cardiac Assessment Last Done: 10/02/23 09:18
ED- Pulmonary Assessment Last Done: 10/02/23 09:18
Discharge Date and Time
Print Language: NIGERIEN
[2023-10-02 09:16] VITALS: BP 140/93
[2023-10-02 09:18] VITALS: BMI 29.0
[2023-10-02 09:31] LABS: % Basophils 0.8 % (0-2); % Eosinophils 2.7 % (0-6); % Immature Granulocytes 0.5 % (0-0.5); % Lymphocytes 17.2 % (20.5-51.1); % Monocytes 12.4 % (1.7-9.3); % Neutrophils 66.4 % (42.2-75.2); Absolute Basophils 0.1 10^3/uL (0-0.2); Absolute Eosinophils 0.2 10^3/uL (0-0.7); Absolute Lymphocytes 1.4 10^3/uL (1.2-3.4); Absolute Neutrophils 5.3 10^3/uL (1.4-6.5); Hematocrit 47.9 % (39.0-52.0); Hemoglobin 16.2 g/dL (13.0-18.0); Mean Corp Hgb Conc. 33.8 g/dL (33.0-37.0); Mean Corpuscular Hgb 29.6 pg (27.0-31.0); Mean Corpuscular Volume 87.6 fL (80.0-94.0); Nucleated Red Blood Cells % 0 % (-); Platelet Count 257 10^3/uL (130-400); Red Blood Cell Count 5.47 10^6/uL (4.70-6.10); Red Cell Dist. Width 15.1 % (11.5-14.5); White Blood Cell Count 7.9 10^3/uL (4.8-10.8)
[2023-10-02 09:51] VITALS: BP 129/94
[2023-10-02 10:00] VITALS: BP 138/94
[2023-10-02 10:01] LABS: NT-proBNP 1730 pg/ml; Troponin I 0.032 ng/ml
[2023-10-02 10:03] LABS: ALT (SGPT) 44 U/L (0-50); AST (SGOT) 39 U/L (17-59); Albumin 4.1 g/dl (3.5-5.0); Alkaline Phosphatase 77 U/L (38-126); Blood Urea Nitrogen 26 mg/dl (9-20); Calcium 9.7 mg/dl (8.4-10.2); Carbon Dioxide 26 mmol/L (22-30); Chloride 106 mmol/L (98-107); Estimated Creatinine Clearance 51 ml/min; Glucose 90 mg/dl (70-99); Potassium 4.4 mmol/L (3.5-5.1); Sodium 138 mmol/L (135-145); Total Bilirubin 1.4 mg/dl (0.2-1.3); Total Protein 6.9 g/dl (6.3-8.2); eGFR > 60.00
--- NOTE | 2023-10-02 12:29 | EDRN ---
Reviewed discharge instructions with patient. Verbalized understanding. Refused wheelchair when offered.
[2023-10-02 12:30] VITALS: BP 151/98
== END 2023-10-02 12:31 | disposition home or self-care (01) ==
LOC: EMR 08:27
PROVIDERS: Nurse Practitioner; EMERGENCY PHYSICIAN Emergency Medicine; FAMILY PHYSICIAN Internal Medicine Geriatric Medicine
DX: R06.00 Dyspnea, unspecified (principal); I44.7 Left bundle-branch block, unspecified; I11.0 Hypertensive heart disease with heart failure; I50.9 Heart failure, unspecified; E78.00 Pure hypercholesterolemia, unspecified; F32.A Depression, unspecified; I42.9 Cardiomyopathy, unspecified
CPT/HCPCS: 99283; 71046; 80053; 83880; 84484; 85025; 93005

== ENCOUNTER → 2023-10-20 08:04 | Outpatient (REF) | payer MEDICARE, OTHER, SELFPAY | LOC: HWRCS 08:04 | PROVIDERS: ATTENDING PHYSICIAN Internal Medicine Cardiovascular Disease; FAMILY PHYSICIAN Internal Medicine Geriatric Medicine | DX: I48.19 Other persistent atrial fibrillation (principal); R06.02 Shortness of breath; I50.20 Unspecified systolic (congestive) heart failure; U07.1 COVID-19 | CPT/HCPCS: 93306 ==

== ENCOUNTER → 2023-11-18 08:10 | Outpatient (REF) | payer MEDICARE, OTHER, SELFPAY ==
[2023-11-18 10:10] LABS: Albumin 4.2 g/dl (3.5-5.0); Blood Urea Nitrogen 17 mg/dl (9-20); Calcium 9.6 mg/dl (8.4-10.2); Carbon Dioxide 26 mmol/L (22-30); Chloride 103 mmol/L (98-107); Glucose 98 mg/dl (70-99); Phosphorus 3.6 mg/dl (2.5-4.5); Potassium 4.1 mmol/L (3.5-5.1); Sodium 137 mmol/L (135-145); eGFR > 60.00
== END ==
LOC: REG 08:10
PROVIDERS: ATTENDING PHYSICIAN Internal Medicine Cardiovascular Disease; FAMILY PHYSICIAN Internal Medicine Geriatric Medicine
DX: I50.20 Unspecified systolic (congestive) heart failure (principal); I10 Essential (primary) hypertension
CPT/HCPCS: 36415; 80069

== ENCOUNTER → 2024-01-05 07:11 | Outpatient (REF) | payer MEDICARE, OTHER, SELFPAY ==
[2024-01-05 08:08] LABS: NT-proBNP 686 pg/ml
[2024-01-05 08:27] LABS: Albumin 4.1 g/dl (3.5-5.0); Blood Urea Nitrogen 29 mg/dl (9-20); Calcium 9.3 mg/dl (8.4-10.2); Carbon Dioxide 26 mmol/L (22-30); Chloride 103 mmol/L (98-107); Glucose 103 mg/dl (70-99); Phosphorus 3.8 mg/dl (2.5-4.5); Sodium 142 mmol/L (135-145); eGFR 54.85
== END ==
LOC: REG 07:11
PROVIDERS: ATTENDING PHYSICIAN Internal Medicine Cardiovascular Disease; FAMILY PHYSICIAN Internal Medicine Geriatric Medicine
DX: I50.22 Chronic systolic (congestive) heart failure (principal)
CPT/HCPCS: 36415; 80069; 83880

== ENCOUNTER → 2024-01-30 07:57 | Outpatient (REF) | payer MEDICARE, OTHER, SELFPAY ==
[2024-01-30 09:18] LABS: HDL Cholesterol 55 mg/dl; LDL Cholesterol, Calculated 96 mg/dl; Total Cholesterol 175 mg/dl (50-199); Triglyceride 120 mg/dl (10-149); Very Low Density Lipoprotein 24 mg/dl (0-30)
== END ==
LOC: REG 07:57
PROVIDERS: ATTENDING PHYSICIAN Nurse Practitioner; FAMILY PHYSICIAN Internal Medicine Geriatric Medicine
DX: E78.00 Pure hypercholesterolemia, unspecified (principal)
CPT/HCPCS: 36415; 80061

== ENCOUNTER → 2024-03-09 13:26 | Outpatient (REF) | payer MEDICARE, OTHER, SELFPAY | LOC: RCS 13:26 | PROVIDERS: ATTENDING PHYSICIAN Internal Medicine Cardiovascular Disease; FAMILY PHYSICIAN Internal Medicine Geriatric Medicine | DX: E78.00 Pure hypercholesterolemia, unspecified (principal); I50.20 Unspecified systolic (congestive) heart failure | CPT/HCPCS: 93308; 93321; 93325 ==

== ENCOUNTER → 2024-03-17 14:04 | Outpatient (REF) | payer MEDICARE, OTHER, SELFPAY ==
[2024-03-17 15:04] LABS: Albumin 4.6 g/dl (3.5-5.0); Blood Urea Nitrogen 22 mg/dl (9-20); Calcium 9.8 mg/dl (8.4-10.2); Carbon Dioxide 26 mmol/L (22-30); Chloride 102 mmol/L (98-107); Glucose 83 mg/dl (70-99); Phosphorus 3.8 mg/dl (2.5-4.5); Potassium 4.2 mmol/L (3.5-5.1); Sodium 138 mmol/L (135-145); eGFR > 60.00
== END ==
LOC: REG 14:04
PROVIDERS: ATTENDING PHYSICIAN Internal Medicine Cardiovascular Disease; FAMILY PHYSICIAN Internal Medicine Geriatric Medicine
DX: I50.20 Unspecified systolic (congestive) heart failure (principal)
CPT/HCPCS: 36415; 80069

== ENCOUNTER → 2024-03-25 12:20 | Outpatient (REF) | payer MEDICARE, OTHER, SELFPAY ==
[2024-03-25 14:03] LABS: Albumin 4.2 g/dl (3.5-5.0); Blood Urea Nitrogen 34 mg/dl (9-20); Calcium 9.4 mg/dl (8.4-10.2); Carbon Dioxide 23 mmol/L (22-30); Chloride 102 mmol/L (98-107); Glucose 106 mg/dl (70-99); Potassium 4.1 mmol/L (3.5-5.1); Sodium 137 mmol/L (135-145); eGFR 50.18
== END ==
LOC: REG 12:20
PROVIDERS: ATTENDING PHYSICIAN Obstetrics & Gynecology; FAMILY PHYSICIAN Internal Medicine Geriatric Medicine; OTHER PHYSICIAN Internal Medicine Cardiovascular Disease
DX: I50.20 Unspecified systolic (congestive) heart failure (principal)
CPT/HCPCS: 36415; 80069

== ENCOUNTER → 2024-04-14 10:53 | Outpatient (REF) | payer MEDICARE, OTHER, SELFPAY ==
[2024-04-14 13:37] LABS: Albumin 4.3 g/dl (3.5-5.0); Blood Urea Nitrogen 20 mg/dl (9-20); Calcium 9.4 mg/dl (8.4-10.2); Carbon Dioxide 25 mmol/L (22-30); Chloride 103 mmol/L (98-107); Glucose 89 mg/dl (70-99); Phosphorus 3.4 mg/dl (2.5-4.5); Potassium 4.8 mmol/L (3.5-5.1); Sodium 139 mmol/L (135-145); eGFR > 60.00
== END ==
LOC: REG 10:53
PROVIDERS: ATTENDING PHYSICIAN Internal Medicine Cardiovascular Disease; FAMILY PHYSICIAN Internal Medicine Geriatric Medicine; REFERRING PHYSICIAN Internal Medicine Cardiovascular Disease
DX: I50.20 Unspecified systolic (congestive) heart failure (principal)
CPT/HCPCS: 36415; 80069

== ENCOUNTER 2024-05-28 13:39 | Outpatient (RCR) | payer MEDICARE, OTHER, SELFPAY | END 2024-05-28 23:59 | disposition home or self-care (01) | LOC: CRHB 13:39 | PROVIDERS: ATTENDING PHYSICIAN Internal Medicine Cardiovascular Disease; FAMILY PHYSICIAN Internal Medicine Geriatric Medicine | DX: I50.22 Chronic systolic (congestive) heart failure (principal) | CPT/HCPCS: G0422; G0423 ==

== ENCOUNTER → 2024-06-22 12:31 | Outpatient (REF) | payer MEDICARE, OTHER, SELFPAY ==
[2024-06-22 15:18] LABS: Vitamin B12 397 pg/ml (239-931)
== END ==
LOC: REG 12:31
PROVIDERS: FAMILY PHYSICIAN Internal Medicine Geriatric Medicine
DX: R41.3 Other amnesia (principal)
CPT/HCPCS: 36415; 82607

== ENCOUNTER → 2024-06-23 13:46 | Outpatient (REF) | payer MEDICARE, OTHER, SELFPAY | LOC: HWRAD 13:46 | PROVIDERS: ATTENDING PHYSICIAN Psychiatry & Neurology Sleep Medicine; FAMILY PHYSICIAN Internal Medicine Geriatric Medicine | DX: R41.3 Other amnesia (principal) | CPT/HCPCS: 70450 ==

== ENCOUNTER 2024-07-16 11:40 | Emergency (ER) | payer MEDICARE, OTHER, SELFPAY ==
--- NOTE | 2024-07-16 12:24 | ED.GENMED ---
History of Present Illness
General
Chief Complaint: Fall
Time Seen by Provider: 07/16/24 12:17
History of Present Illness
History of Present Illness:
TIME OF INITIAL ENCOUNTER: 12 PM
HPI: 6 days ago, while the patient was getting off the train, he missed a step and fell forward striking his knees injuring his chest and hips. He did not have much pain at that time. However he has been having left-sided point tenderness to the
anterior chest wall beneath the left breast region. He has upcoming procedures and medical evaluations for which she wanted to make sure that there was nothing else abnormal. He declines analgesia currently. He has no abdominal pain.
EXAM:
GENERAL: Well appearing in no distress
CERVICAL SPINE: No midline c-spine tenderness with excellent AROM
HEAD: No evidence of craniofacial trauma, bandage on the left side of the scalp consistent with recent Mohs procedure
CHEST: Mild to moderate point tenderness in the left anterior chest wall tenderness beneath the left breast tissue, normal heart sounds
LUNGS: Equal lung sounds, no respiratory distress
ABDOMEN: No abdominal tenderness, no peritoneal signs
EXTREMITIES: Normal active range of motion, no tenderness
NEURO: Excellent strength all extremities, appropriate mental status, normal speech/language
NUMBER AND COMPLEXITY OF PROBLEMS ADDRESSED AT THE ENCOUNTER
� Chronic conditions affecting care: Aortic stenosis, sleep apnea on inspire, COPD, HFrEF with EF of 20%, skin cancer
� Acute Exacerbation and/or Progression of Chronic Illness: This is an acute problem
� Differential Diagnosis includes: Chest wall contusion, rib fracture very unlikely, no abdominal pain or tenderness to suggest intra-abdominal pathology, highly doubt pneumothorax
AMOUNT AND/OR COMPLEXITY OF DATA TO BE REVIEWED AND ANALYZED
� I performed an independent evaluation of and my interpretation is:
EKG: V-paced 88, no significant change from 10/02/2023
CT:
X-rays: I personally viewed chest x-ray including left rib series and I see no clear sign of pneumothorax or rib fracture
Laboratory Studies:
Other:
� Review of other/old records: I reviewed records, the patient has been getting rehab for heart failure as of May 2024
� Clinical information was obtained by an independent historian: I spoke to the at bedside
� Prescriptions/Medications Considered but not given: Declines analgesia
� Further testing considered but not performed: No indication for CT imaging, no abdominal pain or tenderness
RISK OF COMPLICATIONS AND/OR MORBIDITY OR MORTALITY OF PATIENT MANAGEMENT
� Social determinants of health affecting care: Lives at home
� Discussion with other providers: Discussed with Dr. Connor who agrees that there is no fracture
� Escalation of care including admission/observation vs risk of discharge considered: The patient is very comfortable in appearance. He declines analgesia. Very low suspicion for serious injury. X-rays of the chest and ribs
obtained.
ANY OTHER UPDATES:
1:40 PM: On reassessment patient appears comfortable
Past History
Past History
ED Past Medical History: CHF, HTN, Hypercholesterolemia, Psychiatric (depression) and Other (Arthritis, the orthopedic felt replacement with a bio valve, left bundle branch block, cardiomyopathy, depression)
ED Past Surgical History: Cardiac (Aortic valve replaced) and Other (Hernia repair, aortic valve replacement with a bovine valve, sternal dehiscence with repeat operation, status post bilateral hip replacements)
Social History
Tobacco: Non-smoker
Alcohol: Occasional
Drug: None
Personal:
Living: with family
Family History
Family History: Other (Mother with rheumatoid arthritis)
Phy Exam
Physical Exam
Physical Exam:
See HPI
Course
Orders/Labs/Results
Orders:
Orders
07/16/24 11:42
EKG [Electrocardiogram (*1)] Urgent
Reason for Study: Other
Other Reason for Exam: rib pain
EKG- Treatment ONCE
Ribs, Left 3 View W/PA Chest CR [CR Ribs-left 3 Vw W/pa Chest] Urgent
Comment:
Reason For Exam: fall last weekend
*Critical Care Note
Total Time (30-74mins, 75-104mins- exclusive of procedures): Not Applicable
ED Attending Note
-
Portions of this chart may have been created with voice recognition software.� Occasional wrong word or��sound alike� substitutions may have occurred due to the inherent limitations of voice recognition software.
Discharge Plan
Departure
Prescriptions:
No Action
ascorbic acid (vitamin C) [Vitamin C] 500 MG tablet
500 mg PO DAILY
cholecalciferol (vitamin D3) [Vitamin D3] 1,000 UNIT capsule
1,000 unit PO DAILY
cyanocobalamin (vitamin B-12) 2,500 MCG tablet
2,500 mcg PO DAILY
aripiprazole [Abilify] 5 MG tablet
5 mg PO DAILY
dapagliflozin propanediol [Farxiga] 10 MG tablet
10 mg PO DAILY
Linzess 72 mcg Capsule
72 mcg PO DAILY@0600
clonazepam 0.5 mg Tablet
0.25 mg PO QIDPRN PRN (Reason: anxiety)
Patient Comments:
10/02/23: Pt and spouse state they were instructed by pt's physician to stop clonazepam since starting mirtazepine 15mg HS. Prior to stopping ~7 days ago, pt and spouse state pt typically would take 0.25mg QID
polyethylene glycol 3350 [HealthyLax] 17 gram powder in packet
17 g PO DAILY
Rx Instructions:
hold if diarrhea
atorvastatin 10 mg Tablet
10 mg PO DAILY
mirtazapine 15 mg Tablet
15 mg PO HS
Patient Comments:
10/02/23: Pt being transitioned from vilazodone to mirtazapine per patient and spouse. Mirtazapine started 6 days ago
vilazodone 10 mg Tablet
10 mg PO DAILY
Rx Instructions:
Taper off per provider. 10mg daily x4 days then stop
coQ10 (ubiquinol) 100 mg Capsule
200 mg PO DAILY
Belsomra 20 mg Tablet
20 mg PO HS
Patient Comments:
10/02/23: Per pt and spouse, started this 6 days ago for insomnia; received samples from physician
albuterol sulfate 90 mcg/actuation HFA aerosol inhaler
2 puff inhalation R Q6HPRN PRN (Reason: shortness of breath or wheezing)
Eliquis 5 mg tablet
5 mg PO BID
Entresto 49-51 mg tablet
1 tab PO BID
Referrals:
Abdullahi Ogden MD [Family Provider] -
Interventions
Interventions:
*Risk Screen - Suicide Last Done: 07/16/24 11:43
*General Assessment Last Done: 07/16/24 11:43
*Neglect/Abuse Screening Last Done: 07/16/24 11:43
*ED COVID-19 Vaccine History Last Done: 07/16/24 11:43
ED-Musculoskeletal Assessment Last Done: 07/16/24 12:57
ED- Neurological Assessment Last Done: 07/16/24 12:56
Discharge Date and Time
Print Language: [id number]
== END 2024-07-16 13:55 | disposition home or self-care (01) ==
LOC: EMR 11:40
PROVIDERS: EMERGENCY PHYSICIAN Emergency Medicine; FAMILY PHYSICIAN Internal Medicine Geriatric Medicine
DX: S20.212A Contusion of left front wall of thorax, initial encounter (principal); W10.9XXA Fall (on) (from) unspecified stairs and steps, initial encounter
CPT/HCPCS: 99284; 71101; 93005

== ENCOUNTER 2024-07-28 15:09 | Outpatient (RCR) | payer MEDICARE, OTHER, SELFPAY | END 2024-07-28 23:59 | disposition home or self-care (01) | LOC: CRHB 15:09 | PROVIDERS: ATTENDING PHYSICIAN Internal Medicine Cardiovascular Disease; FAMILY PHYSICIAN Internal Medicine Geriatric Medicine | DX: I50.22 Chronic systolic (congestive) heart failure (principal) | CPT/HCPCS: G0422; G0423 ==

== ENCOUNTER 2024-08-02 15:21 | Outpatient (RCR) | payer MEDICARE, OTHER, SELFPAY | END 2024-08-02 23:59 | disposition home or self-care (01) | LOC: CRHB 15:21 | PROVIDERS: ATTENDING PHYSICIAN Internal Medicine Cardiovascular Disease; FAMILY PHYSICIAN Internal Medicine Geriatric Medicine | DX: I50.22 Chronic systolic (congestive) heart failure (principal) | CPT/HCPCS: G0422; G0423 ==

== ENCOUNTER → 2024-08-19 08:04 | Outpatient (REF) | payer MEDICARE, OTHER, SELFPAY ==
[2024-08-19 09:29] LABS: % Basophils 0.7 % (0-2); % Eosinophils 2.4 % (0-6); % Immature Granulocytes 0.2 % (0-0.5); % Lymphocytes 19.5 % (20.5-51.1); % Monocytes 12.7 % (1.7-9.3); % Neutrophils 64.5 % (42.2-75.2); Absolute Basophils 0.1 10^3/uL (0-0.2); Absolute Eosinophils 0.2 10^3/uL (0-0.7); Absolute Lymphocytes 1.6 10^3/uL (1.2-3.4); Absolute Neutrophils 5.3 10^3/uL (1.4-6.5); Hematocrit 51.1 % (39.0-52.0); Hemoglobin 16.6 g/dL (13.0-18.0); Mean Corp Hgb Conc. 32.5 g/dL (33.0-37.0); Mean Corpuscular Hgb 29.6 pg (27.0-31.0); Mean Corpuscular Volume 91.1 fL (80.0-94.0); Mean Platelet Volume 9.4 fL (7.4-10.4); Nucleated Red Blood Cells % 0 % (-); Platelet Count 228 10^3/uL (130-400); Red Blood Cell Count 5.61 10^6/uL (4.70-6.10); Red Cell Dist. Width 14.1 % (11.5-14.5); White Blood Cell Count 8.2 10^3/uL (4.8-10.8)
[2024-08-19 10:35] LABS: ALT (SGPT) 27 U/L (0-50); AST (SGOT) 22 U/L (17-59); Albumin 4.4 g/dl (3.5-5.0); Alkaline Phosphatase 71 U/L (38-126); Blood Urea Nitrogen 22 mg/dl (9-20); Calcium 9.4 mg/dl (8.4-10.2); Carbon Dioxide 25 mmol/L (22-30); Chloride 107 mmol/L (98-107); Glucose 98 mg/dl (70-99); Potassium 4.5 mmol/L (3.5-5.1); Sodium 139 mmol/L (135-145); Total Bilirubin 0.8 mg/dl (0.2-1.3); Total Protein 7.1 g/dl (6.3-8.2); eGFR > 60.00
== END ==
LOC: REG 08:04
PROVIDERS: ATTENDING PHYSICIAN Internal Medicine Advanced Heart Failure and Transplant Cardiology; FAMILY PHYSICIAN Internal Medicine Geriatric Medicine; REFERRING PHYSICIAN Internal Medicine Cardiovascular Disease
DX: I42.8 Other cardiomyopathies (principal)
CPT/HCPCS: 36415; 80053; 85025

== ENCOUNTER 2024-09-17 00:45 | Inpatient (IN) | payer MEDICARE, OTHER, SELFPAY ==
[2024-09-16 21:15] VITALS: BP 116/74
[2024-09-16 21:35] VITALS: BP 83/63
[2024-09-16 21:37] VITALS: BP 93/67; BMI 26.3
--- NOTE | 2024-09-16 21:45 | ED.GENMED ---
History of Present Illness
General
Chief Complaint: Blood Pressure Problem
Source: patient
Exam Limitations: none
Time Seen by Provider: 09/16/24 21:45
Nursing documentation reviewed up to this point in time: agreed with
History of Present Illness
History of Present Illness:
Patient to ED with complaint of extreme weakness and hypotension. states he was started on a new medication - Verquvo 2.5mg daily. Began treatment 2 -3 weeks ago and spouse reports he has not felt well since.History of chronic CHF States
the goal of treatment is to bring his BP down but she states today hes blood pressure has been in the 80's systolic. Brought to ED for eval. He denies any CP/pressure. Report SOB and fatigue.
Past History
Past History
ED Past Medical History: CHF, HTN, Hypercholesterolemia, Psychiatric (depression) and Other (Arthritis, the orthopedic felt replacement with a bio valve, left bundle branch block, cardiomyopathy, depression)
ED Past Surgical History: Cardiac (Aortic valve replaced) and Other (Hernia repair, aortic valve replacement with a bovine valve, sternal dehiscence with repeat operation, status post bilateral hip replacements)
Social History
Tobacco: Non-smoker
Alcohol: Occasional
Drug: None
Personal:
Living: with family
Family History
Family History: Other (Mother with rheumatoid arthritis)
Review of Systems
Review of Systems
Respiratory: Reports no symptoms
Cardiac: Reports no symptoms
ABD/GI: Reports no symptoms
: Reports no symptoms
Musculoskeletal: Reports no symptoms
Skin: Reports no symptoms
Neurological: Reports weakness
Psychiatric: Reports no symptoms
Phy Exam
General Physical Exam
General Presentation: moderate distress
General age: appears stated age
General Skin: warm and dry
General Habitus: normal
Cardiovascular Exam
Cardiovascular Exam: regular rate/rhythm and no edema
Pulmonary Exam
Pulmonary Exam: lungs clear and no respiratory distress
Gastrointestinal Exam
Gastrointestinal Exam: normal bowel sounds, non tender and soft
Musculoskeletal Exam
Musculoskeletal Exam: full ROM and neuro vasc intact
Skin Exam
Skin Exam: normal color, warm/dry and no rash
Psychiatric Exam
Psychiatric Exam: normal mood/affect
Course
Orders/Labs/Results
Orders:
Orders
09/16/24 21:47
CMP [Comprehensive Metabolic Panel] Urgent
Complete Blood Count/With Diff Urgent
09/16/24 21:58
EKG [Electrocardiogram (*1)] Urgent
Reason for Study: Shortness of Breath
EKG- Treatment ONCE
09/16/24 23:19
0.9% Sodium Chloride 500 ml [Nss] 500 ml IV BOLUS
09/16/24 23:30
Urinalysis Reflex To Culture Urgent
Date Specimen was Collected: 09/16/24
Time Specimen was Collected: 22:00
Urine Microscopic Reflex Cult Urgent
09/17/24 00:22
Admit/Transfer Patient As Directed
Co-Sign Provider:
Level of Care: Inpatient admission
Assign to:: Telemetry
Physician / Group: Luzmaria
Diagnosis: Hypotension
Reason for Telemetry: Subacute Heart Failure
Date to Stop Telemetry: 09/19/24
Time to Stop Telemetry: 11:00
Reason for Hospitalization: Hypotension
Expected length of stay greater than two midnights?: Yes
ELOS- Estimated Length of Stay in days: 2
I certify the patient meets the requirements for IP care: Yes
PRN Pain Medication Management As Directed
May give lesser potent ordered pain med per pt: Yes
preference::
Protocol:: Medication orders for pain may be administered in a
manner that supports deferring to patient preference
when the pt is:
- Requesting an ordered lesser potent pain medication.
Least to most potent pain medications are defined
as: acetaminophen < NSAID < tramadol < opioids
(morphine, oxycodone, hydromorphone).
- Requesting a lesser dose of the same medication IF
ORDERED.
- Requesting a less intrusive route of administration
if both routes are prescribed by the provider (PO <
IV).
09/17/24 00:24
Code Status As Directed
Resuscitation Status: Do not resuscitate
Reached after discussion with pt or family/Healthcare POA: Yes
DNR Bracelet Application ONCE
09/17/24 01:12
Acetaminophen [Tylenol] 650 mg PO Q6HPRN PRN
Midodrine [ProAmatine] 2.5 mg PO Q4HPRN PRN
09/17/24 01:12
Echo 2D MMode Color/Doppler Routine
Reason for Study: heart failure
CARDIOLOGY CONSULT Routine
Consulting Provider: Jay Petty
Was physician already notified: No
Reason for consult: severe CHF EF 20%, low bp after vericiguat initiated 3wk ago, no infection
Consult Notification Routine
Specialty to Notify: Cardiology
Date consulting provider notified: 09/17/24
Time consulting provider notified: 07:37
Notified:: Provider
Comment: tt sent
HF DIETARY CONSULT Routine
HF EDUCATOR CONSULT Routine
Comment:
VTE Contraindication Routine
VTE Mechanical Device Contraindication: Medical Contraindication
Pharmocologic Contraindication: Medical Contraindication
Activity As Directed
Activity Level: With Assistance
Intake/ Output As Directed
Frequency: Per unit guidelines
Orthostatic Vital Signs As Directed
Orthostatic VS Frequency: Daily
Patient Education As Directed
Type: CHF folder
Comment: give on admission. Document in Interdisciplinary Education record
Sleep Apnea Assessment by RN As Directed
Comment:
Physician Instructions:
Vital Signs As Directed
Frequency: Other
Additional Instructions:: Q12 or per unit guidelines if more frequent.
Weight As Directed
Frequency: Daily
Type of Scale: Standing Scale
Comment: Daily morning weight. If unable to stand, use balanced bed scale.
Weight As Directed
Frequency: Once
Type of Scale: Standing Scale
Comment: Upon Admission. If unable to stand, use balanced bed scale.
CR Chest Portable - 1 View Urgent
Comment:
Reason For Exam: sob, eval for consolidation
Reason Study Needs to be Portable: Unable to Transport
Pulse Ox/cont/shift [RESP] Routine
Quantity: 1
Special Instructions: Daily pulse oximetry at rest. If greater than 92% at rest also obtain pulse oximetry
while ambulating as tolerated.
09/17/24 05:31
Urine Creatinine Routine
Date Specimen was Collected: 09/17/24
Time Specimen was Collected: 05:25
Urine Sodium Routine
Date Specimen was Collected: 09/17/24
Time Specimen was Collected: 05:25
09/17/24 Breakfast
Cholesterol Lowering
At Your Request: Full Participation
Does patient need a safe tray?: No
Cholesterol Lowering: Sodium, 2 Gram
Linaclotide [Linzess] 72 mcg PO DAILY@0600
09/17/24 07:16
Complete Blood Count/No Diff IN AM
Cortisol, Random IN AM
[id number]-[id number]-[id number] IN AM
Magnesium IN AM
NT-proBNP IN AM
Procalcitonin IN AM
If negative, will antibiotics be d/c'd or not started: Yes
Does the patient have renal or hepatic impairment?: No
Any recent (w/in 48 hrs) physiologic stress (CPR, rhabdo): No
TSH Reflex To Free T4 IN AM
09/17/24 08:00
ARIPiprazole [Abilify] 5 mg PO DAILY
Apixaban [Eliquis] 5 mg PO BID
Atorvastatin [Lipitor] 10 mg PO DAILY
Dapagliflozin [Farxiga] 10 mg PO DAILY
Polyethylene Glycol Powder [Miralax] 17 grams PO DAILY
Sacubitril 49/Valsartan 51 [Entresto 49 mg/51 mg] 1 tab PO BID
09/17/24 22:00
Mirtazapine [Remeron] 15 mg PO HS
09/19/24 11:00
DC Protocol for Telemetry ONCE
Abnormal Lab Results
09/16/24 09/16/24
21:47 23:30
Hct 54.1 H %
(39.0-52.0)
Absolute Monos (auto) 0.9 H 10^3/uL
(0.1-0.6)
Lymphocytes % 13.6 L %
(20.5-51.1)
Monocytes % 10.4 H %
(1.7-9.3)
Creatinine 1.4 H mg/dL
(0.7-1.3)
Glucose 103 H mg/dl
(70-99)
Urine RBC 3-6 A /HPF
(0-2)
Urine Glucose 4+ A
(Negative)
Urine Albumin (Reflex) 2+ A
(Neg - Trace)
09/16/24 21:47
09/16/24 21:47
Vital Signs
Initial and Last Documented VS:
Initial Vital Signs
Temp Pulse Resp BP Pulse Ox
97.1 F 83 18 116/74 94
09/16/24 21:15 09/16/24 21:15 09/16/24 21:15 09/16/24 21:15 09/16/24 21:15
Last Documented Vital Signs
Temp Pulse Resp BP Pulse Ox
98.1 F 82 16 129/85 94
09/17/24 15:00 09/17/24 15:00 09/17/24 15:00 09/17/24 15:00 09/17/24 15:00
*Pulse Oximetry
SaO2: 94
Oxygen Mode of Delivery: Room air
*Critical Care Note
Total Time (30-74mins, 75-104mins- exclusive of procedures): Not Applicable
Update Note
Update Note:
Patient to ED with complaint of extreme fatigue and weakness, hypotension since starting Verquvo. BP mid 80's/50's. No cp/pressure. Has not been eating or drinking today. WIll start with fluid bolus and re-assess. WIll admit to hospitalts
service.
ED Attending Note
-
Portions of this chart may have been created with voice recognition software.� Occasional wrong word or��sound alike� substitutions may have occurred due to the inherent limitations of voice recognition software.
Discharge Plan
Departure
Patient Disposition: Admit
Date of Disposition: 09/16/24
Time of Disposition: 23:36
Presentation/result/management discussed w/ accepting MD/DO: Hospitalist
Patient with high blood pressure during this ER visit?: No
Condition: Fair
Covid-19: Not Applicable
Discharge Problem:
Weakness, Hypotension
Interventions
Interventions:
*Risk Screen - Suicide Last Done: 09/17/24 01:42
*General Assessment Last Done: 09/16/24 21:51
*Neglect/Abuse Screening Last Done: 09/16/24 21:15
*ED- Fall Risk Assessment Last Done: 09/16/24 21:51
*ED COVID-19 Vaccine History Last Done: 09/16/24 21:51
*Nursing Disposition Last Done: 09/17/24 01:04
ED- Cardiac Assessment Last Done: 09/16/24 21:51
ED- Neurological Assessment Last Done: 09/16/24 21:51
ED- Pulmonary Assessment Last Done: 09/16/24 21:51
Discharge Date and Time
Discharge Date/Time: 09/17/24 01:07
[2024-09-16 21:55] LABS: % Basophils 0.7 % (0-2); % Eosinophils 2.7 % (0-6); % Immature Granulocytes 0.5 % (0-0.5); % Lymphocytes 13.6 % (20.5-51.1); % Monocytes 10.4 % (1.7-9.3); % Neutrophils 72.1 % (42.2-75.2); Absolute Basophils 0.1 10^3/uL (0-0.2); Absolute Eosinophils 0.2 10^3/uL (0-0.7); Absolute Lymphocytes 1.2 10^3/uL (1.2-3.4); Absolute Monocytes 0.9 10^3/uL (0.1-0.6); Absolute Neutrophils 6.2 10^3/uL (1.4-6.5); Hematocrit 54.1 % (39.0-52.0); Mean Corp Hgb Conc. 33.3 g/dL (33.0-37.0); Mean Corpuscular Hgb 30.5 pg (27.0-31.0); Mean Corpuscular Volume 91.5 fL (80.0-94.0); Mean Platelet Volume 9.1 fL (7.4-10.4); Nucleated Red Blood Cells % 0 % (-); Platelet Count 206 10^3/uL (130-400); Red Blood Cell Count 5.91 10^6/uL (4.70-6.10); Red Cell Dist. Width 13.9 % (11.5-14.5); White Blood Cell Count 8.6 10^3/uL (4.8-10.8)
[2024-09-16 22:00] VITALS: BP 95/63
[2024-09-16 22:08] LABS: ALT (SGPT) 31 U/L (0-50); AST (SGOT) 26 U/L (17-59); Albumin 4.3 g/dl (3.5-5.0); Alkaline Phosphatase 56 U/L (38-126); Blood Urea Nitrogen 17 mg/dl (9-20); Calcium 9.9 mg/dl (8.4-10.2); Carbon Dioxide 30 mmol/L (22-30); Chloride 106 mmol/L (98-107); Estimated Creatinine Clearance 36 ml/min; Glucose 103 mg/dl (70-99); Sodium 142 mmol/L (135-145); Total Bilirubin 1.2 mg/dl (0.2-1.3); eGFR 49.87
[2024-09-16 23:00] VITALS: BP 84/56
[2024-09-16] MEDS: NSS 500 IV (23:36)
[2024-09-16 23:47] LABS: Urine Albumin 2+ (Neg - Trace); Urine Bilirubin Negative (Negative); Urine Character Clear (Clear); Urine Color Amber; Urine Glucose 4+ (Negative); Urine Ketone Negative (Negative); Urine Leukocyte Negative (Negative); Urine Nitrite Negative (Negative); Urine Occult Blood Negative (Negative); Urine Urobilinogen Negative (Neg - 1+)
--- NOTE | 2024-09-16 23:48 | HPS.HSE ---
Family Physician
-
Family Physician: Abdullahi Ogden
Chief Complaint
-
Low blood pressure
History of Present Illness
This is a 76-year-old with past medical history significant for CHF with reduced EF of around 20%, status post AICD, atrial fibrillation/atrial flutter on anticoagulation, status post pacemaker placement presenting to the emergency department with 1
day history of low blood pressure was measured at home and lightheadedness today.
Patient has fairly advanced congestive heart failure unclear if ischemic cardiomyopathy and he is being followed at [place]. He is on extensive GDMT including Entresto, Farxiga and most recently 3 weeks of vericiguat. According to spouse patient's
blood pressure is usually in the 120s systolic. When he started to very quiet blood pressure was titrated down to 120 with a goal blood pressure of 100. He has been on the statin dose of 2.5 mg daily. His other medications are unchanged. Patient
has had stable dyspnea on exertion and baseline shortness of breath. He has no increased lower extremity edema. He has no chest pain. He had no hypoxia. He denied any lightheadedness or dizziness and he denies any palpitations prior to today.
Patient has had no fevers or chills. He said no cough. He had no urinary symptoms. He denies diarrhea but is on daily laxatives and has multiple BMs per day. Reports decreased appetite. Spouse reports increased sleepiness and worsening chronic
fatigue and weakness.
The last measured a blood pressure of 120 systolic 3 days ago. Today they measured a blood pressure that was as low as 70 systolic at home. There has been no change in his alertness level.
In the emergency department her initial blood pressure was 84/56 with a pulse of 81 and was satting 94% on room air. Temperature was 97.1. This is a normal temperature for him.
ECG shows atrial flutter with a paced rhythm at 80. Troponin was not obtained.
CBC was unremarkable except for hemoglobin of 18. His electrolytes were stable. BUN/creatinine were stable. LFTs were normal.
Medical History
Past Medical History
Past Medical History: Reports Other (hypertension, hyperlipidemia, CAD, aortic stenosis status post TAVR, chronic HFrEF status post biventricular ICD, left bundle branch block,, atrial fibrillation, obstructive sleep apnea, recent left shoulder
replacement, IBS/constipation, anxiety/depression)
Past Surgical History: Reports Other (Cardiac (Aortic valve replaced) and Other (Hernia repair, aortic valve replacement with a bovine valve, sternal dehiscence with repeat operation, status post bilateral hip replacements))
Social History
Tobacco: Non-smoker
Alcohol: None
Drug: None
Family History
Family History: Not pertinent
Allergies / Home Medications
Allergies reflects when Allergies were last updated in [employer].
Home Medications with original date entered in [employer]
Allergy/Medication List:
Allergies
Allergy/AdvReac Type Severity Reaction Status Date / Time
hydrochlorothiazide Allergy Unknown Verified 09/16/24 21:15
Sulfa (Sulfonamide Allergy Unknown Verified 09/16/24 21:15
Antibiotics)
carvedilol AdvReac DEPRESSION Verified 09/16/24 21:15
codeine AdvReac SEDATED Verified 09/16/24 21:15
metoprolol AdvReac DEPRESSION Verified 09/16/24 21:15
promethazine AdvReac SEDATED Verified 09/16/24 21:15
Home Medications
ascorbic acid (vitamin C) 500 mg tablet (Vitamin C) 500 mg PO DAILY Supplement 11/16/19
cholecalciferol (vitamin D3) 25 mcg (1,000 unit) capsule (Vitamin D3) 1,000 unit PO DAILY Supplement 11/16/19
cyanocobalamin (vitamin B-12) 2,500 mcg tablet 2,500 mcg PO DAILY Supplement 11/16/19
aripiprazole 5 mg tablet (Abilify) 5 mg PO DAILY Mental Health/Anxiety 01/22/21
dapagliflozin propanediol 10 mg tablet (Farxiga) 10 mg PO DAILY Heart Failure 01/22/21
linaclotide 72 mcg capsule (Linzess) 72 mcg PO DAILY@0600 constipation 12/23/22
clonazepam 0.5 mg tablet 0.25 mg PO QIDPRN PRN anxiety 01/15/23
polyethylene glycol 3350 17 gram oral powder packet (HealthyLax) 17 g PO DAILY Constipation 04/30/23
albuterol sulfate 90 mcg/actuation aerosol inhaler 2 puff inhalation R Q6HPRN PRN shortness of breath or wheezing 10/02/23
apixaban 5 mg tablet (Eliquis) 5 mg PO BID Blood Clot Prevention/Tx 10/02/23
atorvastatin 10 mg tablet 10 mg PO DAILY High Cholesterol 10/02/23
coQ10 (ubiquinol) 100 mg capsule 200 mg PO DAILY Supplement 10/02/23
mirtazapine 15 mg tablet 15 mg PO HS Mental Health/Anxiety 10/02/23
sacubitril 49 mg-valsartan 51 mg tablet (Entresto) 1 tab PO BID Heart Failure 10/02/23
suvorexant 20 mg tablet (Belsomra) 20 mg PO HS Sleep 10/02/23
vilazodone 10 mg tablet 10 mg PO DAILY Mental Health/Anxiety 10/02/23
Review of Systems
-
Constitutional: Reports No Symptoms
EENT: Reports No Symptoms
Respiratory: Reports Other (Chronic dyspnea on exertion)
Cardiac: Denies Chest Pain, Diaphoresis, Palpitations or Syncope
Abdomen/GI: Reports No Symptoms
: Reports No Symptoms
Musculoskeletal: Reports No Symptoms
Skin: Reports No Symptoms
Neurological: Reports Numbness and Other (Fatigue)
Endocrine: Reports No Symptoms
Hematologic/Lymphatic: Reports No Symptoms
Psych: Reports No Symptoms
Physical Exam
Vital Signs
Vital Signs
Temp Pulse Resp BP Pulse Ox
97.1 F 82 21 84/56 96
09/16/24 21:15 09/16/24 23:30 09/16/24 23:30 09/16/24 23:00 09/16/24 23:30
Physical Exam
General: Well Developed, Well Nourished and No Apparent Distress
HEENT: NormoCephalic, Moist mucous membranes and Atraumatic
Respiratory: Clear
Cardiac: S1/S2 and Regular Rhythm; No Murmur, Rub, Peripheral Edema or HJR
Breast: Deferred by me
GI: Soft, Non Tender, Non Distended and Normal Bowel Sounds; No Organomegaly
Rectal: Deferred by Provider
Genito-urinary: Deferred by me
Musculoskeletal: No Clubbing, No Cyanosis and No Edema
Skin: No Rash
Neuro: Nonfocal/grossly intact
Hematologic/Lymphatic: No Lymphadenopathy
Laboratory Results
-
09/16/24 21:47
09/16/24 21:47
Laboratory Results
Total Bilirubin 1.2 mg/dl (0.2-1.3) 09/16/24 21:47
AST 26 U/L (17-59) 09/16/24 21:47
ALT 31 U/L (0-50) 09/16/24 21:47
Alkaline Phosphatase 56 U/L (38-126) 09/16/24 21:47
Data Reviewed
-
Medical Tests (Nuc Med, Echo, EKG etc): Image Personally Visualized and interpreted
Lab Data: Labs Reviewed by me
Old Records: Reviewed
Impression/Plan
-
IMPRESSION:
84-year-old with history of congestive heart failure EF of around 20%, aortic stenosis status post TAVR, atrial/fibrillation status post pacemaker on anticoagulation, on GDMT was recently started on vericiguat 3 weeks ago who presented to the
emergency department with measured low blood pressures at home. No evidence of new acute coronary event. No evidence of pulmonary embolism. There is no pulmonary edema or peripheral edema. Patient does not appear to have any acute infectious
process. Suspicion is either hypovolemia or secondary to medications.
PLAN:
Hypotension -suspect medication induced versus hypovolemia
-Admit to telemetry
-Midodrine as needed SBP less than 80
-Hold vericiguat
-Hold Entresto if SBP less than 90 systolic
-Patient currently does not require diuretics, diuretics on hold
-Orthostatic vital signs, check TSH, check cortisol,
-X-ray, procalcitonin, UA is negative
-Echo, BNP in the morning
-Cardiology consult
Atrial fibrillation -a flutter, rate controlled and paced at 80
-Continue Eliquis
DVT prophylaxis�on Eliquis
CODE STATUS�DNR
[2024-09-17] VITALS (8 sets, daily range): BP systolic 108–144; BP diastolic 74–97; PULSE 82; BMI 26.4
[2024-09-17 00:35] LABS: Urine White Cell None Seen /HPF (0-5)
[2024-09-17] MEDS: LINZESS 72 MCG PO (05:30)
[2024-09-17 05:56] LABS: Urine Sodium 89 mmol/L (30-90)
[2024-09-17] MEDS: ENTRESTO 49 MG/51 MG 1 TAB PO ×2 (07:13→12:55)
[2024-09-17] MEDS: LIPITOR 10 MG PO (07:13)
[2024-09-17] MEDS: ABILIFY 5 MG PO (07:13)
[2024-09-17] MEDS: ELIQUIS 5 MG PO (07:14)
[2024-09-17] MEDS: FARXIGA 10 MG PO (07:14)
[2024-09-17] MEDS: MIRALAX 17 GRAMS PO (07:15)
[2024-09-17 08:03] LABS: Hemoglobin 16.7 g/dL (13.0-18.0); Mean Corp Hgb Conc. 32.7 g/dL (33.0-37.0); Mean Corpuscular Volume 91.6 fL (80.0-94.0); Mean Platelet Volume 9.6 fL (7.4-10.4); Platelet Count 206 10^3/uL (130-400); Red Blood Cell Count 5.57 10^6/uL (4.70-6.10); Red Cell Dist. Width 13.9 % (11.5-14.5)
--- NOTE | 2024-09-17 08:05 | CON.CAR ---
Addendum entered and electronically signed by Dakota Ugalde MD 09/17/24 15:23:
I saw and examined the patient.
The STAGECRAFT PROFESSOR's note was reviewed and I agree with the note.
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
yesterday as reported by his .
His BP has been elevated since being here. It is unclear to me as the cause of his hypotension it could be that his new medication Vericiguat caused this. We will hold that for now. His echo showed mild interval improvement as below.
Recommend continuing his home meds, BUT, holding Vericiguat.
Echo: September 17, 2024:
CONCLUSIONS
Normal LV size with severely reduced systolic function.
LVEF is 25-30% by visual estimation. Global diffuse hypokinesis.
Mild concentric LVH.
Normal right ventricular size and function.
Well seated bioprosthetic valve. Peak/mean gradients across the aortic valve
are 17/8 mmHg respectively.
Estimated pulmonary artery pressure of 24 mmHg, assuming a right atrial
pressure of 3 mmHg.
Compared to prior from March 09, 2024, on [id number] comparison overall
LVEF is slightly more vigorous estimated today 25-30%, previously 20-25%.
Original Note:
Consultation
Consultation Request
Date/Time Consultation Requested: 09/17/24 1a
Date/Time Consultation Performed: 09/17/24 8a
Requesting Provider: Dr. Dutta
Performing Provider: MEREDITH Du for Dr. Ugalde
Reason for Consultation: hypotension
Medical History
-
Chief Complaint: low BP
History of Present Illness:
Mr. 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
BP, 77/57, yesterday as reported by his . He is followed by Dr. Kearney at [facility] for advanced heart failure and was newly started on Vericiguat 3 weeks ago. He has noticed lower BP since starting, they were told goal SBP of 100mmHg. We are
consulted for hypotension with chronic advanced HFrEF.
Past Medical History
Past Medical History: Other (as above)
Past Surgical History: Other (as above)
Social History
Tobacco: Non-Smoker
Alcohol: None
Personal:
Living: With Family
Employment: Retired
Family History
Family History: Reviewed & Not Pertinent
Allergies / Home Medications
Allergy/AdvReac Type Severity Reaction Status Date / Time
hydrochlorothiazide Allergy Unknown Verified 09/16/24 21:15
Sulfa (Sulfonamide Allergy Unknown Verified 09/16/24 21:15
Antibiotics)
carvedilol AdvReac DEPRESSION Verified 09/16/24 21:15
codeine AdvReac SEDATED Verified 09/16/24 21:15
metoprolol AdvReac DEPRESSION Verified 09/16/24 21:15
promethazine AdvReac SEDATED Verified 09/16/24 21:15
�Medication �Instructions �Recorded �Confirmed �Type
ascorbic acid (vitamin C) 500 mg 500 mg PO DAILY Supplement 11/16/19 09/17/24 History
tablet (Vitamin C)
cholecalciferol (vitamin D3) 25 1,000 unit PO DAILY Supplement 11/16/19 09/17/24 History
mcg (1,000 unit) capsule (Vitamin
D3)
cyanocobalamin (vitamin B-12) 2,500 mcg PO DAILY Supplement 11/16/19 09/17/24 History
2,500 mcg tablet
aripiprazole 5 mg tablet (Abilify) 5 mg PO DAILY Mental Health/Anxiety 01/22/21 09/17/24 History
dapagliflozin propanediol 10 mg 10 mg PO DAILY Heart Failure 01/22/21 09/17/24 History
tablet (Farxiga)
linaclotide 72 mcg capsule 72 mcg PO DAILY@0600 constipation 12/23/22 09/17/24 History
(Linzess)
clonazepam 0.5 mg tablet 0.25 mg PO QIDPRN PRN anxiety 01/15/23 09/17/24 History
polyethylene glycol 3350 17 gram 17 g PO DAILY Constipation 04/30/23 09/17/24 History
oral powder packet (HealthyLax)
albuterol sulfate 90 mcg/actuation 2 puff inhalation R Q6HPRN PRN 10/02/23 09/17/24 History
aerosol inhaler shortness of breath or wheezing
apixaban 5 mg tablet (Eliquis) 5 mg PO BID Blood Clot 10/02/23 09/17/24 History
Prevention/Tx
atorvastatin 10 mg tablet 10 mg PO DAILY High Cholesterol 10/02/23 09/17/24 History
coQ10 (ubiquinol) 100 mg capsule 200 mg PO DAILY Supplement 10/02/23 09/17/24 History
mirtazapine 15 mg tablet 15 mg PO HS Mental Health/Anxiety 10/02/23 09/17/24 History
sacubitril 49 mg-valsartan 51 mg 1 tab PO BID Heart Failure 10/02/23 09/17/24 History
tablet (Entresto)
suvorexant 20 mg tablet (Belsomra) 20 mg PO HS Sleep 10/02/23 09/17/24 History
vilazodone 10 mg tablet 10 mg PO DAILY Mental 10/02/23 09/17/24 History
Health/Anxiety
Review of Systems
-
History Source: Patient
All other systems: Negative unless noted
Physical Exam
Vital Signs
Temp Pulse Resp BP Pulse Ox
97.6 F 64 24 162/84 97
09/17/24 03:15 09/17/24 07:13 09/17/24 03:15 09/17/24 07:13 09/17/24 03:15
Lab Results
09/17/24 07:16
09/16/24 21:47
Physical Exam
General: Well Developed, Well Nourished and No Apparent Distress
HEENT: Normocephalic, Anicteric and Moist Mucous Membranes
Respiratory: Clear and Non Labored Respirations
Cardiac: S1/S2 and Regular Rhythm
Breast: Deferred by me
GI: Soft, Non Tender, Non Distended and Normal Bowel Sounds
Rectal: Deferred by Provider
Genito-urinary: No Costovertebral Tender
Musculoskeletal: No Clubbing, No Cyanosis and No Edema
Skin: Warm and Dry
Neuro: AO x 3
Hematologic/Lymphatic: No Lymphadenopathy
Psych: Calm
Impression / Plan
-
Hypotension - acute.
- secondary to starting Vericiguat [address] Kearney at [facility] with goal SBP 100mmHg.
- BP has improved with holding it.
- continue to monitor.
- echo ordered this am.
NICM/HFrEF - chronic, EF 20-25%.
- well compensated.
- follows with Dr. Kearney at [facility] for advanced heart failure.
- he did not tolerate Aldactone, Toprol, Bisoprolol and Eplerenone due to rash.
- Dr. Kearney recommends Barostim procedure but first needs his Inspire device removed (scheduled for 10/20/24 at [facility]) then has to wait 2-3 months before Barostim.
- continue Entresto and Farxiga as BP tolerates.
- he does not use Lasix, only PRN.
- reports stable weights of 161 lbs at home.
- has MDT BiV ICD in place.
Aortic stenosis - s/p bio AVR 02/2015.
- well seated on echo 02/2024.
- echo done this am.
Permanent Afib - stable rates.
- continue Eliquis.
ICD - MDT BiV.
- followed closely in our outpatient device clinic.
- no discharges.
Data Reviewed
-
EKG: Tracing Personally Visualized and interpreted (Vpaced with underlying Aflutter 80 bpm)
Radiology: Report Reviewed by me (CXR: NAD)
Medical Tests (Nuc Med, Echo etc): Report Reviewed by me (echo 02/2024: severe global HK and severely reduced LV systolic function, EF 20-25%, severely dilated LA, moderately dilated RA, well seated normally functioning bio AVR.)
Labs: Labs Reviewed by me
Old Records: Reviewed
[2024-09-17 08:37] LABS: ALT (SGPT) 29 U/L (0-50); AST (SGOT) 23 U/L (17-59); Albumin 4.2 g/dl (3.5-5.0); Alkaline Phosphatase 53 U/L (38-126); Direct Bilirubin 0.2 mg/dl (0.0-0.4); Magnesium 2.2 mg/dl (1.6-2.3); Procalcitonin < 0.05 ng/ml (0.0-0.25); Total Bilirubin 0.9 mg/dl (0.2-1.3); Total Protein 6.9 g/dl (6.3-8.2)
[2024-09-17 08:42] LABS: NT-proBNP 1090 pg/ml
[2024-09-17 09:05] LABS: Cortisol, Random 16.1 ug/dl; TSH Reflex To Free T4 0.96 uIU/ml (0.47-4.68)
[2024-09-17 10:37] LABS: Glucose - Point of Care 90 mg/dl (70-99)
[2024-09-17 10:55] LABS: Hematocrit 48.7 % (39.0-52.0); Hemoglobin 16.2 g/dL (13.0-18.0); Mean Corp Hgb Conc. 33.3 g/dL (33.0-37.0); Mean Corpuscular Hgb 30.2 pg (27.0-31.0); Mean Corpuscular Volume 90.7 fL (80.0-94.0); Mean Platelet Volume 9.3 fL (7.4-10.4); Platelet Count 196 10^3/uL (130-400); Red Blood Cell Count 5.37 10^6/uL (4.70-6.10); Red Cell Dist. Width 13.9 % (11.5-14.5)
[2024-09-17 11:09] LABS: Blood Urea Nitrogen 22 mg/dl (9-20); Calcium 9.7 mg/dl (8.4-10.2); Carbon Dioxide 26 mmol/L (22-30); Chloride 108 mmol/L (98-107); Estimated Creatinine Clearance 46 ml/min; Glucose 90 mg/dl (70-99); Potassium 4.3 mmol/L (3.5-5.1); Sodium 141 mmol/L (135-145); eGFR > 60.00
[2024-09-17 11:14] LABS: Troponin I 0.021 ng/ml
[2024-09-17] MEDS: KLONOPIN 0.25 MG PO ×2 (11:50→16:18)
--- NOTE | 2024-09-17 15:57 | W.PN.HOSP.TC ---
Today's Communication/Plan
-
Discharge today
Assessment / Plan
Assessment / Plan
Physical Exam
General: Well Developed, Well Nourished and No Apparent Distress
HEENT: Normocephalic, Moist mucous membranes and Atraumatic
Respiratory: Clear
Cardiac: S1/S2 and Regular Rhythm; No Murmur, Rub, Peripheral Edema or HJR
Breast: Deferred by me
GI: Soft, Non Tender, Non Distended and Normal Bowel Sounds
Musculoskeletal: No Cyanosis and No Edema
Skin: Warm. Dry.
Neuro: Nonfocal/grossly intact
Assessment/Plan
IMPRESSION:
84-year-old with history of congestive heart failure EF of around 20%, aortic stenosis status post TAVR, atrial/fibrillation status post pacemaker on anticoagulation, on GDMT was recently started on vericiguat 3 weeks ago who presented to the
emergency department with measured low blood pressures at home. No evidence of new acute coronary event. No evidence of pulmonary embolism. There is no pulmonary edema or peripheral edema. Patient does not appear to have any acute infectious
process. Suspicion is either hypovolemia or secondary to medications.
Acute Hypotension -suspect medication induced from Vericiguat
Chronic Postprandial SOB and Dizziness
-Monitor on telemetry while in the hospital
-STOP vericiguat which can cause hypotension
-Echo with improved ejection fraction this admission
-Cardiology consult appreciated, nothing else to do, follow-up with GI outpatient for postprandial symptoms -- GI appointment scheduled for Friday09/20/24
Permanent Atrial fibrillation status post AVJ 01/2023
-Continue Eliquis
Nonischemic cardiomyopathy with EF 20-25% (newly lower on echo 03/09/2024), status post BiV ICD Medtronic
-follows with Dr. Kearney at [facility] for advanced heart failure.
-Dr. Kearney recommended Barostim procedure but first patient needs to have his Inspire device removed (scheduled for 10/20/24 at [facility]) then has to wait 2-3 months before Barostim.
-he did not tolerate Aldactone, Toprol, Bisoprolol and Eplerenone due to rash.
-Continue Entresto and Farxiga with holding parameters
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
DVT prophylaxis�on Eliquis
CODE STATUS�DNR
More than 30 minutes spent in discharge including
Final examination of the patient
Summarizing hospital stay
Instructions for continuing care to all relevant caregivers
Preparation of discharge records, prescriptions, and referral forms
Total time spent (in minutes): 38
Anticipated Discharge: Today
Subjective/Interval History
-
Date of Service: September 17, 2024
Patient was seen and examined. He was doing okay, after eating he felt a bit shortness of breath and dizzy but that resolved within 30-60 minutes -- patient and his stated that this (SOB and dizziness after eating have been happening for about
a month now and they don't know why) -- they said an outpatient GI appointment was being made for December 2024 -- I spoke with GI who said they can see the patient on Friday09/20/24 for this issue.
Objective Data
-
Labs:
Laboratory Results
09/17/24 09/17/24 09/17/24
07:16 10:33 10:46
WBC 8.0 8.0
Hgb 16.7 16.2
Hct 51.0 48.7
Plt Count 206 196
Sodium 141 Cancelled
Potassium 4.3 Cancelled
Chloride 108 H Cancelled
Carbon Dioxide 26 Cancelled
BUN 22 H Cancelled
Creatinine 1.1 Cancelled
Glucose 90 Cancelled
Calcium 9.7 Cancelled
Total Bilirubin 0.9
AST 23
ALT 29
Alkaline Phosphatase 53
Vital Signs:
Vital Signs
Temp Pulse Resp BP Pulse Ox
98.0 F 82 16 127/79 94
09/17/24 11:00 09/17/24 12:55 09/17/24 11:00 09/17/24 12:55 09/17/24 11:00
I&O
09/16/24 09/17/24 09/18/24
06:59 06:59 06:59
Intake Total 240 / 240
Output Total 200 / 200
Balance 40 / 40
--- NOTE | 2024-09-17 16:40 | W.DCSUMMARY ---
Discharge Summary
Discharge Data
Date of Admission: 09/16/24
Date of Discharge: 09/17/24
Total time spent discharging patient (in min): 38
-
Pending Results: No
Hospital Course
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
permanent atrial fibrillation status post AVJ 01/2023, hypertension, dyslipidemia with statin induced microcytosis, LBBB, CVA 2014 postop, KASSANDRA status post Inspire implant and major depressive disorder, who presented after being found to have
systolic blood pressure 70s at home associated with lightheadedness. Patient's Vericiguat was placed on hold. Patient was noted to feel lightheaded after eating breakfast but this lasted for a short while and soon resolved -- patient and his
said this had been happening at home for weeks and for which they were asked to see gastroenterology outpatient by their outpatient providers. Patient was continued on Entresto. Patient's blood pressure was stable and he was okay for discharge.
Discharge Plan
-
Patient Disposition: Home (Routine Discharge)
Discharge Diagnosis/Procedures: Acute Hypotension - suspected medication induced from Vericiguat
Chronic Postprandial Shortness of Breath and Dizziness
Permanent Atrial fibrillation status post AVJ 01/2023
Non-ischemic cardiomyopathy with EF 20-25% (newly lower on echo 03/09/2024), status post BiV ICD Medtronic
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
Echocardiogram Results (as per [facility] adf consultant's report):
'CONCLUSIONS
Normal LV size with severely reduced systolic function.
LVEF is 25-30% by visual estimation. Global diffuse hypokinesis.
Mild concentric LVH.
Normal right ventricular size and function.
Well seated bioprosthetic valve. Peak/mean gradients across the aortic valve
are 17/8 mmHg respectively.
Estimated pulmonary artery pressure of 24 mmHg, assuming a right atrial
pressure of 3 mmHg.
Compared to prior from March 09, 2024, on [id number] comparison overall
LVEF is slightly more vigorous estimated today 25-30%, previously 20-25%.'
Condition: Good
Diet: Low Fat, Low Cholesterol, 2 Gram Sodium and Restrict fluids to 48 oz
Activity: As tolerated
Specialty Instructions: Weigh Daily- Call MD for wt gain/loss 3 lbs overnight/5 lbs in 1 week
Activity Restrictions/Additional Instructions:
Per dental laboratory manager nurse practitioner Massiel Romeo, you have a dental laboratory manager appointment for Friday09/20/24 at 12:[address] Pyle (dental laboratory manager)
Referrals:
Mayo Pyle MD [Active, Gastroenterology] - in three to four days
Referral Note: Appointment for Friday09/20/24 at 12:[address] Pyle
Abdullahi Ogden MD [Family Provider, Internal Medicine]
Additional Discharge Medication Instructions: Entresto is to 97 mg/103 mg twice per day (prescription sent to your pharmacy)
STOP Vericiguat which can cause hypotension
You mentioned you take Clonazepam three times per day so it has been changed to reflect that.
Prescriptions:
New
Entresto 97-103 mg Tablet
1 tab PO BID Qty: 60 2RF
Continued
ascorbic acid (vitamin C) [Vitamin C] 500 MG tablet
500 mg PO DAILY
cholecalciferol (vitamin D3) [Vitamin D3] 1,000 UNIT capsule
1,000 unit PO DAILY
cyanocobalamin (vitamin B-12) 2,500 MCG tablet
2,500 mcg PO DAILY
aripiprazole [Abilify] 5 MG tablet
5 mg PO DAILY
dapagliflozin propanediol [Farxiga] 10 MG tablet
10 mg PO DAILY
Linzess 72 mcg Capsule
72 mcg PO DAILY@0600
polyethylene glycol 3350 [HealthyLax] 17 gram powder in packet
17 g PO DAILY
Rx Instructions:
hold if diarrhea
atorvastatin 10 mg Tablet
10 mg PO DAILY
mirtazapine 15 mg Tablet
15 mg PO HS
Patient Comments:
10/02/23: Pt being transitioned from vilazodone to mirtazapine per patient and spouse. Mirtazapine started 6 days ago
vilazodone 10 mg Tablet
10 mg PO DAILY
Rx Instructions:
Taper off per provider. 10mg daily x4 days then stop
coQ10 (ubiquinol) 100 mg Capsule
200 mg PO DAILY
Belsomra 20 mg Tablet
20 mg PO HS
Patient Comments:
10/02/23: Per pt and spouse, started this 6 days ago for insomnia; received samples from physician
albuterol sulfate 90 mcg/actuation HFA aerosol inhaler
2 puff inhalation R Q6HPRN PRN (Reason: shortness of breath or wheezing)
Eliquis 5 mg tablet
5 mg PO BID
Changed
clonazepam 0.5 mg Tablet
0.25 mg PO TIDPRN PRN (Reason: anxiety) Qty: 0 0RF
Patient Comments:
10/02/23: Pt and spouse state they were instructed by pt's physician to stop clonazepam since starting mirtazepine 15mg HS. Prior to stopping ~7 days ago, pt and spouse state pt typically would take 0.25mg QID
Discontinued
Entresto 49-51 mg tablet
1 tab PO BID
Discharge Orders:
Discharge Patient (As Directed); Ordered 09/17/24
Ordered By: Anuj Sahu
Discharge Date and Time
Discharge Date/Time: 09/17/24 17:11
Print Language: NEPALI
--- NOTE | 2024-09-17 17:35 | CM ---
Met with patient to obtain information for assessment, patient stated that he lives with his in a two story home with two steps to enter. He described himself as independent with his ADLs, personal care, bathing and dressing. 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 He can drive and can get to his appointments and do all of his own shopping. He denied DME in his home. He has never had VN or been to a SNF.
Patient has a prescription plan and uses, [facility] for all of his medications.
His PCP is, Shahbaz Mercado.
Plan: Case management will continue to follow and assist with discharge planning. Home with .
== END 2024-09-17 17:11 | disposition home or self-care (01) | DRG 312 ==
LOC: 4 EAST ACU 00:45
PROVIDERS: Nurse Practitioner; ADMITTING PHYSICIAN Internal Medicine; ATTENDING PHYSICIAN Hospitalist; EMERGENCY PHYSICIAN Emergency Medicine; FAMILY PHYSICIAN Internal Medicine Geriatric Medicine; OTHER PHYSICIAN Internal Medicine Cardiovascular Disease
DX: I95.2 Hypotension due to drugs (principal); I42.8 Other cardiomyopathies; I48.21 Permanent atrial fibrillation; I50.22 Chronic systolic (congestive) heart failure; I48.92 Unspecified atrial flutter; T50.995A Adverse effect of other drugs, medicaments and biological substances, initial encounter; I11.0 Hypertensive heart disease with heart failure; E78.00 Pure hypercholesterolemia, unspecified; R53.82 Chronic fatigue, unspecified; Z88.2 Allergy status to sulfonamides; F41.9 Anxiety disorder, unspecified; F32.A Depression, unspecified; K59.00 Constipation, unspecified; Z79.01 Long term (current) use of anticoagulants; Z95.3 Presence of xenogenic heart valve; Z66 Do not resuscitate; Z86.73 Personal history of transient ischemic attack (TIA), and cerebral infarction without residual deficits; G47.33 Obstructive sleep apnea (adult) (pediatric); I25.10 Atherosclerotic heart disease of native coronary artery without angina pectoris; Z79.84 Long term (current) use of oral hypoglycemic drugs; Z79.899 Other long term (current) drug therapy; Z82.61 Family history of arthritis; Z95.810 Presence of automatic (implantable) cardiac defibrillator; Z96.612 Presence of left artificial shoulder joint; Z96.643 Presence of artificial hip joint, bilateral
CPT/HCPCS: 71045; 80048; 80053; 80076; 81003; 81015; 82533; 82570; 82962; 83735; 83880; 84145; 84300; 84443; 84484; 85025; 85027; 93005; 93306; 96360; 97162; 99284

== ENCOUNTER → 2024-09-24 14:34 | Outpatient (REF) | payer MEDICARE, OTHER, SELFPAY ==
[2024-09-24 15:51] LABS: % Basophils 0.8 % (0-2); % Eosinophils 3.1 % (0-6); % Immature Granulocytes 0.5 % (0-0.5); % Lymphocytes 16.8 % (20.5-51.1); % Monocytes 11.8 % (1.7-9.3); Absolute Basophils 0.1 10^3/uL (0-0.2); Absolute Eosinophils 0.2 10^3/uL (0-0.7); Absolute Lymphocytes 1.3 10^3/uL (1.2-3.4); Absolute Monocytes 0.9 10^3/uL (0.1-0.6); Absolute Neutrophils 5.2 10^3/uL (1.4-6.5); Hematocrit 50.3 % (39.0-52.0); Hemoglobin 16.7 g/dL (13.0-18.0); Mean Corp Hgb Conc. 33.2 g/dL (33.0-37.0); Mean Corpuscular Hgb 30.4 pg (27.0-31.0); Mean Corpuscular Volume 91.6 fL (80.0-94.0); Mean Platelet Volume 9.3 fL (7.4-10.4); Nucleated Red Blood Cells % 0 % (-); Platelet Count 202 10^3/uL (130-400); Red Blood Cell Count 5.49 10^6/uL (4.70-6.10); Red Cell Dist. Width 14.1 % (11.5-14.5); White Blood Cell Count 7.7 10^3/uL (4.8-10.8)
[2024-09-24 16:12] LABS: Blood Urea Nitrogen 17 mg/dl (9-20); Calcium 9.4 mg/dl (8.4-10.2); Carbon Dioxide 30 mmol/L (22-30); Chloride 107 mmol/L (98-107); Glucose 96 mg/dl (70-99); Potassium 4.4 mmol/L (3.5-5.1); Sodium 141 mmol/L (135-145); eGFR > 60.00
== END ==
LOC: REG 14:34
PROVIDERS: ATTENDING PHYSICIAN Otolaryngology; OTHER PHYSICIAN Internal Medicine Geriatric Medicine; REFERRING PHYSICIAN Internal Medicine Cardiovascular Disease
DX: G47.33 Obstructive sleep apnea (adult) (pediatric) (principal)
CPT/HCPCS: 36415; 80048; 85025; 93005

== ENCOUNTER → 2024-11-06 10:01 | Outpatient (REF) | payer MEDICARE, OTHER, SELFPAY ==
[2024-11-06 11:07] LABS: Hematocrit 50.7 % (39.0-52.0); Hemoglobin 17.0 g/dL (13.0-18.0); Mean Corp Hgb Conc. 33.5 g/dL (33.0-37.0); Mean Corpuscular Volume 89.9 fL (80.0-94.0); Nucleated Red Blood Cells % 0 % (-); Platelet Count 214 10^3/uL (130-400); Red Cell Dist. Width 13.9 % (11.5-14.5)
[2024-11-06 11:12] LABS: INR 1.18; PT 15.3 Sec (11.4-14.6)
[2024-11-06 11:13] LABS: APTT 32.9 Sec (23.4-35.0)
[2024-11-06 11:32] LABS: ALT (SGPT) 27 U/L (0-50); AST (SGOT) 21 U/L (17-59); Albumin 4.2 g/dl (3.5-5.0); Alkaline Phosphatase 65 U/L (38-126); Blood Urea Nitrogen 18 mg/dl (9-20); Calcium 9.3 mg/dl (8.4-10.2); Carbon Dioxide 28 mmol/L (22-30); Chloride 105 mmol/L (98-107); Glucose 92 mg/dl (70-99); Potassium 4.2 mmol/L (3.5-5.1); Sodium 138 mmol/L (135-145); Total Protein 7.0 g/dl (6.3-8.2); eGFR > 60.00
[2024-11-06 12:34] LABS: Digoxin < 0.4 ng/ml (0.8-2.0)
== END ==
LOC: REG 10:01
PROVIDERS: ATTENDING PHYSICIAN Internal Medicine Advanced Heart Failure and Transplant Cardiology; FAMILY PHYSICIAN Internal Medicine Geriatric Medicine
DX: I50.40 Unspecified combined systolic (congestive) and diastolic (congestive) heart failure (principal); I42.8 Other cardiomyopathies
CPT/HCPCS: 36415; 80053; 80162; 85025; 85610; 85730; 86850; 86900; 86901

== ENCOUNTER 2024-12-04 00:34 | Emergency (ER) | payer MEDICARE, OTHER, SELFPAY ==
[2024-12-04 00:55] VITALS: BP 185/105
[2024-12-04 01:32] VITALS: BP 140/94
[2024-12-04 01:52] LABS: Urine Character Clear (Clear)
[2024-12-04 02:00] VITALS: BP 111/72
--- NOTE | 2024-12-04 02:03 | ED.GENMED ---
History of Present Illness
General
Chief Complaint: Male Genito-Urinary Symptoms
Time Seen by Provider: 12/04/24 01:20
History of Present Illness
History of Present Illness:
FOCUSED PAST MEDICAL HISTORY
- The patient has history of COPD and KASSANDRA, CHF, aortic stenosis, high blood pressure, thyroid cancer
REVIEW OF OLD RECORDS
- The patient was admitted here in August and at that time documented to have history of nonischemic cardiomyopathy with a EF of 20 to 25%, permanent A-fib and it had systolics in the 70s at that time.
Note:
CHIEF COMPLAINT(S)
Difficulty urinating and constipation.
HISTORY OF PRESENT ILLNESS
The patient is an 84-year-old male with a known history of heart disease and reduced ejection fraction, currently at 20%, presenting with difficulty urinating and constipation. The patient underwent a procedure on Friday to implant a new heart
device, referred to by the patient as 'aerosome,' at [facility]. The procedure was performed under twilight sedation due to concerns about the patients ability to tolerate general anesthesia. Post-procedure, he was prescribed
oxycodone and has taken four pills since. However, the patient did not receive any instruction on preventing constipation, which he began experiencing. On evaluation, the patient admits to feeling constipated. He has tried Miralax and a product
called 'Super Cleanse' without relief. A rectal examination was performed, revealing soft stool present without any obvious fecal impaction.
PAST MEDICAL AND SURGICAL HISTORY
Heart disease with an ejection fraction of 20%.
CHRONIC MEDICAL CONDITIONS SIGNIFICANTLY AFFECTING CARE
Chronic conditions affecting care include heart disease with reduced ejection fraction.
SOCIAL DETERMINANTS OF HEALTH
Per the patients history, the patient does not report significant problems with substance use, lack of support, or financial difficulties, but none were specifically discussed.
PHYSICAL EXAM
-General: The patient appears somewhat chronically ill but appears fairly comfortable
-HEENT: Moist oral mucosa
-Neurologic: Fair strength all extremities, no obvious coordination deficits
-Psychiatric: Appropriate mental status, reasonable insight and judgement
-: I evaluated the patient after the Nazario catheter was placed; Nazario catheter draining clear yellow urine
GI: Small rectal fecal impaction which is soft but patient could not tolerate manual disimpaction
PLAN
- Leave indwelling urinary catheter in place over the weekend due to difficulty urinating and recent device implantation.
- The patient is advised to follow up with a urologist from the [facility] the coming Friday to assess the need for catheter continuation or removal.
- Discharge the patient with instructions to manage constipation with dietary changes or additional laxatives as needed.
DIFFERENTIAL DIAGNOSIS
The Differential Diagnosis includes, in no particular order and is not limited to:
- Urinary retention secondary to benign prostatic hyperplasia
- Post-procedural urinary retention
- Constipation due to opioid use
- Heart failure exacerbation
- Constipation secondary to medication
- Urinary tract infection
- Acute kidney injury
- Obstructive uropathy
- Diabetes (given glucose presence in urine)
- Neurogenic bladder
SUMMARY OF ENCOUNTER
The patient was seen in the emergency department for urinary retention and constipation following minor heart device implantation and subsequent oxycodone use post-procedure. Bladder decompression achieved with urinary catheter and constipation is
being managed conservatively.
DISPOSITION
Discharge
INDEPENDENT REVIEW OF LABS AND INTERPRETATION OF TESTS
A urinalysis was conducted, showing the presence of glucose without signs of a urinary tract infection.
FOLLOW-UP INSTRUCTIONS
Schedule an appointment with urologist Dr. Wolfe on Friday for further evaluation of urinary catheter management.
MEDICAL DECISION MAKING
-Complexity of Data Reviewed: Chronic conditions affecting care: Heart disease with reduced ejection fraction.
-Data:
Category 1:
-Evaluated patient symptoms and conducted diagnostic rectal examination and urinalysis.
-Risk:
-Prescription medication was prescribed (Oxycodone).
-Care significantly affected by Social Determinants of Health: Not directly apparent in this encounter.
DIAGNOSIS
- Urinary retention secondary to an indeterminate cause, R33.9
- Constipation related to opioid usage, K59.00
- Heart failure with reduced ejection fraction, I50.22
LABS
- Urinalysis shows no clear sign of infection
UPDATE
-SUMMARY OF ENCOUNTER
The patient, an 84-year-old male, presented to the emergency department with difficulty urinating and constipation following a recent heart device implantation procedure. Upon examination, a small rectal fecal impaction was noted but unable to be
fully disimpacted due to patient intolerance. Despite this, the stool was relatively soft. A bladder scan revealed urine retention greater than 600 mL, and a Nazario catheter was placed, which resulted in improved symptoms. Continued use of
polyethylene glycol 3350 (Miralax) was advised for constipation management.
DISPOSITION
Discharge
PLAN
- Continue use of polyethylene glycol 3350 (Miralax) for constipation management.
- Follow up with Dr. [facility] stephen this week for further evaluation.
FOLLOW-UP INSTRUCTIONS
Please follow up with the urologist at Dr. [facility] stephen this week for further evaluation of urinary catheter management and overall condition.
MEDICATION RECONCILIATION
- Polyethylene glycol 3350 (Miralax) continued for managing constipation.
MEDICAL DECISION MAKING
-Complexity of Data Reviewed: Chronic conditions affecting care include heart disease with reduced ejection fraction (20%). The differential diagnosis includes urinary retention secondary to benign prostatic hyperplasia, post-procedural urinary
retention, constipation due to opioid use, heart failure exacerbation, urinary tract infection, acute kidney injury, obstructive uropathy, diabetes, and neurogenic bladder.
-Risk:
Prescription medication was prescribed. Polyethylene glycol 3350 (Miralax) for constipation.
DIAGNOSIS
- Urinary retention
- Constipation related to opioid usage, K59.00
- Heart failure with reduced ejection fraction, I50.22
Past History
Past History
ED Past Medical History: CHF, HTN, Hypercholesterolemia, Psychiatric (depression) and Other (Arthritis, the orthopedic felt replacement with a bio valve, left bundle branch block, cardiomyopathy, depression)
ED Past Surgical History: Cardiac (Aortic valve replaced) and Other (Hernia repair, aortic valve replacement with a bovine valve, sternal dehiscence with repeat operation, status post bilateral hip replacements)
Social History
Tobacco: Non-smoker
Alcohol: Occasional
Drug: None
Personal:
Living: with family
Family History
Family History: Other (Mother with rheumatoid arthritis)
Phy Exam
Physical Exam
Physical Exam:
See HPI
Course
Orders/Labs/Results
Orders:
Orders
12/04/24 01:20
Bladder Scan- Treatment ONCE
Nazario Placement- Treatment ONCE
Reason for insertion: Acute Retention
12/04/24 01:44
Urinalysis Reflex To Culture Urgent
Date Specimen was Collected: 12/04/24
Time Specimen was Collected: 01:39
Urine Microscopic Reflex Cult Urgent
Abnormal Lab Results
12/04/24
01:44
Urine RBC 7-10 A /HPF
(0-2)
Urine Bacteria (Reflex) Few A
(Negative)
Urine Glucose 4+ A
(Negative)
Urine Albumin (Reflex) 1+ A
(Neg - Trace)
Vital Signs
Initial and Last Documented VS:
Initial Vital Signs
Pulse Resp BP Pulse Ox
48 32 185/105 94
12/04/24 00:55 12/04/24 00:55 12/04/24 00:55 12/04/24 00:55
Last Documented Vital Signs
Temp Pulse Resp BP Pulse Ox
37.0 C 80 28 140/94 93
12/04/24 01:47 12/04/24 01:45 12/04/24 01:45 12/04/24 01:32 12/04/24 02:04
*Pulse Oximetry
SaO2: 93
Oxygen Mode of Delivery: Room air
Patient hypoxic: yes (The patient is hypoxic with room air sats of 90 to 94% but he does have a history of COPD, former smoker and KASSANDRA)
*Critical Care Note
Total Time (30-74mins, 75-104mins- exclusive of procedures): Not Applicable
ED Attending Note
-
Portions of this chart may have been created with voice recognition software.� Occasional wrong word or��sound alike� substitutions may have occurred due to the inherent limitations of voice recognition software.
Discharge Plan
Departure
Patient Disposition: Home (Routine Discharge)
Date of Disposition: 12/04/24
Time of Disposition: 02:12
Patient with high blood pressure during this ER visit?: Yes
Discharge Problem:
Acute urinary retention
Instructions: How to Care for Your Nazario Catheter, Male, Urinary Retention (DC), BLOOD PRESSURE
Prescriptions:
No Action
ascorbic acid (vitamin C) [Vitamin C] 500 MG tablet
500 mg PO DAILY
cholecalciferol (vitamin D3) [Vitamin D3] 1,000 UNIT capsule
1,000 unit PO DAILY
cyanocobalamin (vitamin B-12) 2,500 MCG tablet
2,500 mcg PO DAILY
aripiprazole [Abilify] 5 MG tablet
5 mg PO DAILY
dapagliflozin propanediol [Farxiga] 10 MG tablet
10 mg PO DAILY
Linzess 72 mcg Capsule
72 mcg PO DAILY@0600
polyethylene glycol 3350 [HealthyLax] 17 gram powder in packet
17 g PO DAILY
Rx Instructions:
hold if diarrhea
atorvastatin 10 mg Tablet
10 mg PO DAILY
mirtazapine 15 mg Tablet
15 mg PO HS
Patient Comments:
10/02/23: Pt being transitioned from vilazodone to mirtazapine per patient and spouse. Mirtazapine started 6 days ago
vilazodone 10 mg Tablet
10 mg PO DAILY
Rx Instructions:
Taper off per provider. 10mg daily x4 days then stop
coQ10 (ubiquinol) 100 mg Capsule
200 mg PO DAILY
Belsomra 20 mg Tablet
20 mg PO HS
Patient Comments:
10/02/23: Per pt and spouse, started this 6 days ago for insomnia; received samples from physician
albuterol sulfate 90 mcg/actuation HFA aerosol inhaler
2 puff inhalation R Q6HPRN PRN (Reason: shortness of breath or wheezing)
Eliquis 5 mg tablet
5 mg PO BID
Entresto 97-103 mg Tablet
1 tab PO BID Qty: 60 2RF
clonazepam 0.5 mg Tablet
0.25 mg PO TIDPRN PRN (Reason: anxiety) Qty: 0 0RF
Patient Comments:
10/02/23: Pt and spouse state they were instructed by pt's physician to stop clonazepam since starting mirtazepine 15mg HS. Prior to stopping ~7 days ago, pt and spouse state pt typically would take 0.25mg QID
Referrals:
Sly Junior Jr., MD [Active, Urology]
Activity Restrictions/Additional Instructions:
Continue MiraLAX. Urinalysis does not show any signs of infection. He did have greater than 600 mL of urine in your bladder we therefore placed a Nazario catheter. We will leave this in over the weekend and I recommend you call Dr. Junior's office
on Friday to arrange a follow-up visit.
Interventions
Interventions:
*Risk Screen - Suicide Last Done: 12/04/24 00:55
*General Assessment Last Done: 12/04/24 00:55
*Neglect/Abuse Screening Last Done: 12/04/24 00:55
*ED- Fall Risk Assessment Last Done: 12/04/24 00:55
*ED COVID-19 Vaccine History Last Done: 12/04/24 00:55
ED-Male Genitourinary Assessment Last Done: 12/04/24 01:06
Discharge Date and Time
Print Language: MALTESE
[2024-12-04 02:06] LABS: Urine White Cell 0-2 /HPF (0-5)
== END 2024-12-04 02:56 | disposition home or self-care (01) ==
LOC: EMR 00:34
PROVIDERS: EMERGENCY PHYSICIAN Emergency Medicine; FAMILY PHYSICIAN Internal Medicine Geriatric Medicine
DX: R33.9 Retention of urine, unspecified (principal); J44.9 Chronic obstructive pulmonary disease, unspecified; G47.33 Obstructive sleep apnea (adult) (pediatric); I11.0 Hypertensive heart disease with heart failure; I50.20 Unspecified systolic (congestive) heart failure; E78.00 Pure hypercholesterolemia, unspecified; F32.A Depression, unspecified; I35.0 Nonrheumatic aortic (valve) stenosis; I42.8 Other cardiomyopathies; I48.21 Permanent atrial fibrillation; M19.90 Unspecified osteoarthritis, unspecified site; Z82.61 Family history of arthritis; Z85.850 Personal history of malignant neoplasm of thyroid; Z95.3 Presence of xenogenic heart valve; Z96.643 Presence of artificial hip joint, bilateral
CPT/HCPCS: 99282; 51702; 81003; 81015

== ENCOUNTER 2024-12-12 23:20 | Emergency (ER) | payer MEDICARE, OTHER, SELFPAY ==
[2024-12-12 23:21] VITALS: BP 112/78
--- NOTE | 2024-12-12 23:50 | ED.GENMED ---
History of Present Illness
General
Chief Complaint: Blood Pressure Problem
Source: patient and spouse
Exam Limitations: none
Time Seen by Provider: 12/12/24 23:35
History of Present Illness
History of Present Illness:
84-year-old male complaining of general weakness ongoing nausea fatigue and hypotension. This was a prolonged hypotensive episode this evening. History of same issues in the past. Complicated medical history including a nonischemic cardiomyopathy
with an EF of 20 to 25% status post ICD [employer] pacemaker aortic stenosis status post AVR permanent A-fib hypertension hypercholesterolemia. Patient is followed by [facility] heart failure team. Recent inspire implant was removed and Barostim device
placed. Not activated to date
Past History
Past History
ED Past Medical History: CHF, HTN, Hypercholesterolemia, Psychiatric (depression) and Other (Arthritis, the orthopedic felt replacement with a bio valve, left bundle branch block, cardiomyopathy, depression)
ED Past Surgical History: Cardiac (Aortic valve replaced) and Other (Hernia repair, aortic valve replacement with a bovine valve, sternal dehiscence with repeat operation, status post bilateral hip replacements)
Social History
Tobacco: Non-smoker
Alcohol: Occasional
Drug: None
Personal:
Living: with family
Family History
Family History: Other (Mother with rheumatoid arthritis)
Review of Systems
Review of Systems
All Other Systems: Not applicable
Cardiac: Denies chest pain or syncope
ABD/GI: Denies abdominal pain
Phy Exam
Physical Exam
Physical Exam:
GENERAL: Alert and oriented in no apparent distress
EYE: Orbits normal.
NECK: Supple, no significant adenopathy.
ENT: Pharynx without erythema
CARDIAC: Regular rate and rhythm with mild midsystolic murmur. Healing surgical site right upper chest wall
LUNGS: No respiratory distress. A few dry rales in the bases
ABDOMEN: Soft, without focal tenderness or distention
NEUROLOGICAL: Alert and oriented , grossly non-focal
SKIN: Warm and dry, no rash or lesion, no discoloration, skin intact.
MUSCULOSKELETAL: No edema,no deformity.Good color
PSYCH: Normal and appropriate interaction.
Course
Orders/Labs/Results
Orders:
Orders
12/12/24 23:48
Electrocardiogram (*1) Stat
Reason for Study: Other
Other Reason for Exam: chest pain
Cardiac Monitoring- Treatment ONCE
EKG- Treatment ONCE
IV Insert/Care/Rem.- Treatment PRN
Interrogate Pacemaker- Treatment ONCE
Pulse Ox/cont/shift [RESP] Stat
Quantity: 1
12/12/24 23:49
Urinalysis Reflex To Culture Urgent
12/12/24 23:54
Complete Blood Count/With Diff Urgent
Comprehensive Metabolic Panel Urgent
Lipase Urgent
NT-proBNP Urgent
Troponin I Urgent
12/13/24 00:15
CR Chest - 2 Views Urgent
Reason For Exam: sob weak
Abnormal Lab Results
12/12/24
23:54
Abs Immat Gran (auto) 0.1 H 10^3/uL
(0-0.05)
Absolute Lymphs (auto) 1.1 L 10^3/uL
(1.2-3.4)
Absolute Monos (auto) 1.1 H 10^3/uL
(0.1-0.6)
Immature Gran % 0.8 H %
(0-0.5)
Lymphocytes % 12.7 L %
(20.5-51.1)
Monocytes % 11.7 H %
(1.7-9.3)
Carbon Dioxide 31 H mmol/L
(22-30)
Glucose 124 H mg/dl
(70-99)
Total Protein 6.1 L g/dl
(6.3-8.2)
12/12/24 23:54
12/12/24 23:54
Vital Signs
Initial and Last Documented VS:
Initial Vital Signs
Temp Pulse Resp BP Pulse Ox
98 F 96 24 112/78 96
12/12/24 23:21 12/12/24 23:21 12/12/24 23:21 12/12/24 23:21 12/12/24 23:21
Last Documented Vital Signs
Temp Pulse Resp BP Pulse Ox
98 F 80 21 110/75 94
12/12/24 23:21 12/13/24 00:30 12/13/24 00:30 12/13/24 00:30 12/13/24 00:22
MDM/Problems Addressed
Differential Diagnosis Includes:
Patient complaining of general fatigue weakness episodes of hypotension. Long history of ongoing similar issues. Workup in progress. Evaluate for CO, pacemaker issue, CHF, electrolyte issue, renal issue. Doubt infectious issue. Will check
urine. Patient had a recent catheter placed. And removed.
*Radiology
Radiology exam reviewed: preliminary read by ED provider (No acute findings)
*Pulse Oximetry
SaO2: 96
Oxygen Mode of Delivery: Room air
Patient hypoxic: no
*EKG
Interpreted by ED Provider?: Yes
Interpretation: abnormal
Comparison EKG: changes noted
Heart Rate: 80
Rate: normal
Rhythm: ventricular paced
*Critical Care Note
Total Time (30-74mins, 75-104mins- exclusive of procedures): Not Applicable
Data Reviewed
Review of Other/Old Records Reveals: Labs, Records, Radiology Studies, Testing and Discharge Summary
Update Note
Update Note:
Pacemaker interrogation appears within normal limits
Patient has remained stable and nontoxic. He did have some transient moderate drop in his blood pressure here that self resolved. This seems to be his history. No serious etiology issue found. Cardiac testing negative. Pacemaker stable. Not in
acute heart failure. Discussed options of admission and observation versus close outpatient follow-up. They have an appointment this morning with her primary block inspector and very much want to see her. They understand there is some risk to going
home although I feel relatively low given these episodes have been ongoing then of all self resolved. He has no urinary symptoms and does not feel like he can urinate now. No infectious symptoms. Reasonable for discharge to follow-up this morning
with his block inspector
ED Attending Note
-
Portions of this chart may have been created with voice recognition software.� Occasional wrong word or��sound alike� substitutions may have occurred due to the inherent limitations of voice recognition software.
Discharge Plan
Departure
Patient Disposition: Home (Routine Discharge)
Date of Disposition: 12/13/24
Time of Disposition: 01:21
Patient with high blood pressure during this ER visit?: No
Discharge Problem:
Labile hypotension, History of CHF/nonischemic cardiomyopath
Prescriptions:
No Action
ascorbic acid (vitamin C) [Vitamin C] 500 MG tablet
500 mg PO DAILY
cholecalciferol (vitamin D3) [Vitamin D3] 1,000 UNIT capsule
1,000 unit PO DAILY
cyanocobalamin (vitamin B-12) 2,500 MCG tablet
2,500 mcg PO DAILY
aripiprazole [Abilify] 5 MG tablet
5 mg PO DAILY
dapagliflozin propanediol [Farxiga] 10 MG tablet
10 mg PO DAILY
Linzess 72 mcg Capsule
72 mcg PO DAILY@0600
polyethylene glycol 3350 [HealthyLax] 17 gram powder in packet
17 g PO DAILY
Rx Instructions:
hold if diarrhea
atorvastatin 10 mg Tablet
10 mg PO DAILY
mirtazapine 15 mg Tablet
15 mg PO HS
Patient Comments:
10/02/23: Pt being transitioned from vilazodone to mirtazapine per patient and spouse. Mirtazapine started 6 days ago
vilazodone 10 mg Tablet
10 mg PO DAILY
Rx Instructions:
Taper off per provider. 10mg daily x4 days then stop
coQ10 (ubiquinol) 100 mg Capsule
200 mg PO DAILY
Belsomra 20 mg Tablet
20 mg PO HS
Patient Comments:
10/02/23: Per pt and spouse, started this 6 days ago for insomnia; received samples from physician
albuterol sulfate 90 mcg/actuation HFA aerosol inhaler
2 puff inhalation R Q6HPRN PRN (Reason: shortness of breath or wheezing)
Eliquis 5 mg tablet
5 mg PO BID
sacubitril-valsartan [Entresto] 97-103 mg Tablet
1 tab PO BID Qty: 60 2RF
clonazepam 0.5 mg Tablet
0.25 mg PO TIDPRN PRN (Reason: anxiety) Qty: 0 0RF
Patient Comments:
10/02/23: Pt and spouse state they were instructed by pt's physician to stop clonazepam since starting mirtazepine 15mg HS. Prior to stopping ~7 days ago, pt and spouse state pt typically would take 0.25mg QID
Referrals:
UNKNOWN - PT DOES,NOT KNOW [Family Provider]
Activity Restrictions/Additional Instructions:
See your block inspector this morning as scheduled
Return with worsening hypotension episodes, chest pain, shortness of breath, passing out, fever or any other concerning symptoms
Interventions
Interventions:
*Risk Screen - Suicide Last Done: 12/12/24 23:21
*General Assessment Last Done: 12/12/24 23:58
*Neglect/Abuse Screening Last Done: 12/12/24 23:21
*ED- Fall Risk Assessment Last Done: 12/12/24 23:58
*ED COVID-19 Vaccine History Last Done: 12/12/24 23:58
ED- Cardiac Assessment Last Done: 12/13/24 00:01
ED- Neurological Assessment Last Done: 12/13/24 00:01
ED- Pulmonary Assessment Last Done: 12/13/24 00:01
Discharge Date and Time
Print Language: K[place]
[2024-12-12 23:56] VITALS: BMI 26.3
[2024-12-13] VITALS (7 sets, daily range): BP systolic 82–118; BP diastolic 62–83
[2024-12-13 00:01] LABS: Hematocrit 46.3 % (39.0-52.0); Hemoglobin 15.5 g/dL (13.0-18.0); Mean Corp Hgb Conc. 33.5 g/dL (33.0-37.0); Mean Corpuscular Volume 90.1 fL (80.0-94.0); Nucleated Red Blood Cells % 0 % (-); Platelet Count 258 10^3/uL (130-400); Red Cell Dist. Width 13.4 % (11.5-14.5)
[2024-12-13 00:16] LABS: ALT (SGPT) 22 U/L (0-50); AST (SGOT) 20 U/L (17-59); Albumin 3.7 g/dl (3.5-5.0); Alkaline Phosphatase 51 U/L (38-126); Blood Urea Nitrogen 18 mg/dl (9-20); Calcium 9.0 mg/dl (8.4-10.2); Carbon Dioxide 31 mmol/L (22-30); Chloride 104 mmol/L (98-107); Estimated Creatinine Clearance 42 ml/min; Glucose 124 mg/dl (70-99); Lipase 63 U/L (23-300); Potassium 4.1 mmol/L (3.5-5.1); Sodium 140 mmol/L (135-145); Total Protein 6.1 g/dl (6.3-8.2); eGFR > 60.00
[2024-12-13 00:27] LABS: Troponin I 0.025 ng/ml
== END 2024-12-13 01:33 | disposition home or self-care (01) ==
LOC: EMR 23:20
PROVIDERS: EMERGENCY PHYSICIAN Emergency Medicine
DX: I95.9 Hypotension, unspecified (principal); R53.1 Weakness; R11.0 Nausea; R53.83 Other fatigue; I11.0 Hypertensive heart disease with heart failure; I50.9 Heart failure, unspecified; I44.7 Left bundle-branch block, unspecified; E78.00 Pure hypercholesterolemia, unspecified; M19.90 Unspecified osteoarthritis, unspecified site; F32.A Depression, unspecified; R01.1 Cardiac murmur, unspecified; Z95.3 Presence of xenogenic heart valve; Z95.810 Presence of automatic (implantable) cardiac defibrillator; Z96.643 Presence of artificial hip joint, bilateral; Z79.01 Long term (current) use of anticoagulants; Z88.5 Allergy status to narcotic agent; Z88.2 Allergy status to sulfonamides; Z88.8 Allergy status to other drugs, medicaments and biological substances
CPT/HCPCS: 99285; 94760; 93289; 71046; 80053; 83690; 83880; 84484; 85025; 93005

== ENCOUNTER → 2024-12-30 09:18 | Outpatient (REF) | payer MEDICARE, OTHER, SELFPAY ==
[2024-12-30 11:46] LABS: Blood Urea Nitrogen 14 mg/dl (9-20); Calcium 9.2 mg/dl (8.4-10.2); Carbon Dioxide 25 mmol/L (22-30); Chloride 107 mmol/L (98-107); Glucose 98 mg/dl (70-99); Potassium 4.0 mmol/L (3.5-5.1); Sodium 139 mmol/L (135-145); eGFR > 60.00
== END ==
LOC: REG 09:18
PROVIDERS: ATTENDING PHYSICIAN Internal Medicine Advanced Heart Failure and Transplant Cardiology; FAMILY PHYSICIAN Internal Medicine Geriatric Medicine; REFERRING PHYSICIAN Internal Medicine Cardiovascular Disease
DX: I42.8 Other cardiomyopathies (principal)
CPT/HCPCS: 36415; 80048

== ENCOUNTER 2025-01-15 12:46 | Inpatient (IN) | payer MEDICARE, OTHER, SELFPAY ==
[2025-01-15] VITALS (10 sets, daily range): BP systolic 136–160; BP diastolic 90–110; BMI 27.0; BMI 27.9; BMI 25.9
--- NOTE | 2025-01-15 07:31 | ED.GENMED ---
History of Present Illness
<Binh Carter PA-C - Last Filed: 01/15/25 14:17>
General
Chief Complaint: Rectal Bleeding
Time Seen by Provider: 01/15/25 07:04
History of Present Illness
History of Present Illness:
84-year-old male with history of COPD, aortic stenosis, CHF, CAD, hypertension, and hyperlipidemia presents to the emergency department for evaluation of painless rectal bleeding for the past day. He reports 9-10 episodes of grossly bloody bowel
movements. No diarrhea. Denies any abdominal discomfort or abdominal pain. No fevers or chills. Takes Eliquis last dose was this morning. Denies dizziness or lightheadedness
Past History
<Binh Carter PA-C - Last Filed: 01/15/25 14:17>
Past History
ED Past Medical History: CHF, HTN, Hypercholesterolemia, Psychiatric (depression) and Other (Arthritis, the orthopedic felt replacement with a bio valve, left bundle branch block, cardiomyopathy, depression)
ED Past Surgical History: Cardiac (Aortic valve replaced) and Other (Hernia repair, aortic valve replacement with a bovine valve, sternal dehiscence with repeat operation, status post bilateral hip replacements)
Social History
Tobacco: Non-smoker
Alcohol: Occasional
Drug: None
Personal:
Living: with family
Family History
Family History: Other (Mother with rheumatoid arthritis)
Review of Systems
<Binh Carter PA-C - Last Filed: 01/15/25 14:17>
Review of Systems
Allergies reviewed?: Yes
All Other Systems: ROS reviewed and negative except as documented in HPI and ROS
Phy Exam
<Binh Carter PA-C - Last Filed: 01/15/25 14:17>
Physical Exam
Physical Exam:
GEN: Well appearing, NAD, WDWN
HEENT: Oral mucosa moist, no scleral icterus
Cardiac: Regular rate
Lung: No respiratory distress, no tachypnea
Abdomen: Soft, grossly nontender
Rectal: Small amount of bright red blood in the rectal vault, no visible bleeding hemorrhoids
MSK: No gross deformity or injuries
Skin: Good color, no pallor or jaundice, no rashes
Neuro: AO x3, moves all extremities freely
Psych: Calm, cooperative
Course
<Binh Carter PA-C - Last Filed: 01/15/25 14:17>
Orders/Labs/Results
Orders:
Orders
01/15/25 07:29
CT Angio Abd/Pelvis w/wo IV [CT Abd/pelvis Angio W/wo Iv] Urgent
Comment:
Reason For Exam: rectal hemorrhage
01/15/25 07:43
Type+Screen Urgent
Complete Blood Count/With Diff Urgent
Comprehensive Metabolic Panel Urgent
01/15/25 10:06
C DIFF [C difficile Antigen & Toxins] Urgent
SHANELL Source: Feces/Stool
Specimen Description:
Date Specimen was Collected: 01/15/25
Time Specimen was Collected: 09:53
Stool Culture Urgent
SHANELL Source: Feces/Stool
Specimen Description:
Date Specimen was Collected: 01/15/25
Time Specimen was Collected: 09:56
01/15/25 11:53
Admit/Transfer Patient As Directed
Co-Sign Provider:
Level of Care: Inpatient admission
Assign to:: Telemetry
Physician / Group: Dr. Moralez
Diagnosis: Acute GI bleeding
Reason for Telemetry: Subacute Heart Failure
Date to Stop Telemetry: 01/17/25
Time to Stop Telemetry: 11:00
Reason for Hospitalization: Acute GI bleeding
Expected length of stay greater than two midnights?: Yes
ELOS- Estimated Length of Stay in days: 3
I certify the patient meets the requirements for IP care: Yes
01/15/25 12:36
GASTROINTESTINAL CONSULT Routine
Consulting Provider: Rosio Johnston
Was physician already notified: Yes
Reason for consult: gi bleed
01/15/25 12:48
Acetaminophen [Tylenol] 650 mg PO Q4HPRN PRN
Albuterol [ProAIR HFA INHALER] 2 puff INH R Q6HPRN PRN shortness of breath or wheezing
Bisacodyl [Dulcolax] 10 mg RECTAL [id number] PRN
Clonazepam [Klonopin] 0.25 mg PO TIDPRN PRN anxiety
Docusate W/Senna [Senokot-S] 1 tablet PO BIDPRN PRN
Ondansetron Injectable [Zofran] 4 mg IV Q6HPRN PRN
Polyethylene Glycol Powder [Miralax] 17 grams PO DAILYPRN PRN
01/15/25 12:48
Activity As Directed
Activity Level: As Tolerated
Pneumatic Compression Sleeves As Directed
Type: Knee high
Vital Signs As Directed
Frequency: Per unit guidelines
Weight As Directed
Frequency: Daily
Type of Scale: Standing Scale
O2 Therapy [RESP] Routine
Titrate/Wean O2 to maintain O2 sat greater than (%): 92
DX Deep Vein Thrombosis Video Routine
01/15/25 Dinner
NPO
Allow oral meds: Yes
Allow clear liquids: Sips of Clears
NPO with Ice Chips: Yes
01/15/25 20:00
Sacubitril 97/Valsartan 103 [Entresto 97 mg/103 mg] 1 tab PO BID
01/15/25 22:00
Mirtazapine [Remeron] 15 mg PO HS
01/16/25 06:00
Basic Metabolic Panel IN AM
Complete Blood Count/No Diff IN AM
01/16/25 08:00
ARIPiprazole [Abilify] 5 mg PO DAILY
Atorvastatin [Lipitor] 10 mg PO DAILY
01/17/25 06:00
Basic Metabolic Panel IN AM
Complete Blood Count/No Diff IN AM
01/17/25 11:00
DC Protocol for Telemetry ONCE
01/18/25 06:00
Basic Metabolic Panel IN AM
Complete Blood Count/No Diff IN AM
Abnormal Lab Results
01/15/25
07:43
RBC 4.34 L 10^6/uL
(4.70-6.10)
MCV 94.7 H fL
(80.0-94.0)
MCHC 31.6 L g/dL
(33.0-37.0)
Abs Immat Gran (auto) 0.1 H 10^3/uL
(0-0.05)
Absolute Monos (auto) 0.9 H 10^3/uL
(0.1-0.6)
Immature Gran % 0.7 H %
(0-0.5)
Lymphocytes % 16.8 L %
(20.5-51.1)
Monocytes % 12.3 H %
(1.7-9.3)
Chloride 109 H mmol/L
(98-107)
BUN 28 H mg/dl
(9-20)
Glucose 111 H mg/dl
(70-99)
Total Protein 5.9 L g/dl
(6.3-8.2)
Albumin 3.4 L g/dl
(3.5-5.0)
01/15/25 07:43
01/15/25 07:43
Vital Signs
Initial and Last Documented VS:
Initial Vital Signs
Temp Pulse Resp BP Pulse Ox
97.7 F 87 16 146/99 99
01/15/25 06:57 01/15/25 06:57 01/15/25 06:57 01/15/25 06:57 01/15/25 06:57
Last Documented Vital Signs
Temp Pulse Resp BP Pulse Ox
98.0 F 80 19 147/99 96
01/15/25 12:50 01/15/25 12:45 01/15/25 12:45 01/15/25 12:38 01/15/25 12:45
<Abad Damon Michelle, DO - Last Filed: 01/15/25 13:59>
Orders/Labs/Results
Orders:
Orders
01/15/25 07:29
CT Angio Abd/Pelvis w/wo IV [CT Abd/pelvis Angio W/wo Iv] Urgent
Comment:
Reason For Exam: rectal hemorrhage
01/15/25 07:43
Type+Screen Urgent
Complete Blood Count/With Diff Urgent
Comprehensive Metabolic Panel Urgent
01/15/25 10:06
C DIFF [C difficile Antigen & Toxins] Urgent
SHANELL Source: Feces/Stool
Specimen Description:
Date Specimen was Collected: 01/15/25
Time Specimen was Collected: 09:53
Stool Culture Urgent
SHANELL Source: Feces/Stool
Specimen Description:
Date Specimen was Collected: 01/15/25
Time Specimen was Collected: 09:56
01/15/25 11:53
Admit/Transfer Patient As Directed
Co-Sign Provider:
Level of Care: Inpatient admission
Assign to:: Telemetry
Physician / Group: Dr. Moralez
Diagnosis: Acute GI bleeding
Reason for Telemetry: Subacute Heart Failure
Date to Stop Telemetry: 01/17/25
Time to Stop Telemetry: 11:00
Reason for Hospitalization: Acute GI bleeding
Expected length of stay greater than two midnights?: Yes
ELOS- Estimated Length of Stay in days: 3
I certify the patient meets the requirements for IP care: Yes
01/15/25 12:36
GASTROINTESTINAL CONSULT Routine
Consulting Provider: Rosio Johnston
Was physician already notified: Yes
Reason for consult: gi bleed
01/15/25 12:48
Acetaminophen [Tylenol] 650 mg PO Q4HPRN PRN
Albuterol [ProAIR HFA INHALER] 2 puff INH R Q6HPRN PRN shortness of breath or wheezing
Bisacodyl [Dulcolax] 10 mg RECTAL [id number] PRN
Clonazepam [Klonopin] 0.25 mg PO TIDPRN PRN anxiety
Docusate W/Senna [Senokot-S] 1 tablet PO BIDPRN PRN
Ondansetron Injectable [Zofran] 4 mg IV Q6HPRN PRN
Polyethylene Glycol Powder [Miralax] 17 grams PO DAILYPRN PRN
01/15/25 12:48
Activity As Directed
Activity Level: As Tolerated
Pneumatic Compression Sleeves As Directed
Type: Knee high
Vital Signs As Directed
Frequency: Per unit guidelines
Weight As Directed
Frequency: Daily
Type of Scale: Standing Scale
O2 Therapy [RESP] Routine
Titrate/Wean O2 to maintain O2 sat greater than (%): 92
DX Deep Vein Thrombosis Video Routine
01/15/25 Dinner
NPO
Allow oral meds: Yes
Allow clear liquids: Sips of Clears
NPO with Ice Chips: Yes
01/15/25 20:00
Sacubitril 97/Valsartan 103 [Entresto 97 mg/103 mg] 1 tab PO BID
01/15/25 22:00
Mirtazapine [Remeron] 15 mg PO HS
01/16/25 06:00
Basic Metabolic Panel IN AM
Complete Blood Count/No Diff IN AM
01/16/25 08:00
ARIPiprazole [Abilify] 5 mg PO DAILY
Atorvastatin [Lipitor] 10 mg PO DAILY
01/17/25 06:00
Basic Metabolic Panel IN AM
Complete Blood Count/No Diff IN AM
01/17/25 11:00
DC Protocol for Telemetry ONCE
01/18/25 06:00
Basic Metabolic Panel IN AM
Complete Blood Count/No Diff IN AM
Abnormal Lab Results
01/15/25
07:43
RBC 4.34 L 10^6/uL
(4.70-6.10)
MCV 94.7 H fL
(80.0-94.0)
MCHC 31.6 L g/dL
(33.0-37.0)
Abs Immat Gran (auto) 0.1 H 10^3/uL
(0-0.05)
Absolute Monos (auto) 0.9 H 10^3/uL
(0.1-0.6)
Immature Gran % 0.7 H %
(0-0.5)
Lymphocytes % 16.8 L %
(20.5-51.1)
Monocytes % 12.3 H %
(1.7-9.3)
Chloride 109 H mmol/L
(98-107)
BUN 28 H mg/dl
(9-20)
Glucose 111 H mg/dl
(70-99)
Total Protein 5.9 L g/dl
(6.3-8.2)
Albumin 3.4 L g/dl
(3.5-5.0)
01/15/25 07:43
01/15/25 07:43
Vital Signs
Initial and Last Documented VS:
Initial Vital Signs
Temp Pulse Resp BP Pulse Ox
97.7 F 87 16 146/99 99
01/15/25 06:57 01/15/25 06:57 01/15/25 06:57 01/15/25 06:57 01/15/25 06:57
Last Documented Vital Signs
Temp Pulse Resp BP Pulse Ox
98.0 F 80 19 147/99 96
01/15/25 12:50 01/15/25 12:45 01/15/25 12:45 01/15/25 12:38 01/15/25 12:45
<Binh Carter PA-C - Last Filed: 01/15/25 14:17>
MDM/Problems Addressed
MDM/Problems Addressed:
CT angiograms obtained due to the frequency and reported volume of hematochezia, this did not show any evidence for acute bleed, he did have several further bouts of small volume of blood passage via the rectum in the ED. Given that he is
anticoagulated with the last dose this morning we will admit for observation
<Binh Carter PA-C - Last Filed: 01/15/25 14:17>
*Pulse Oximetry
SaO2: 99
Oxygen Mode of Delivery: Room air
Patient hypoxic: no
*Critical Care Note
Total Time (30-74mins, 75-104mins- exclusive of procedures): Not Applicable
ED Attending Note
<Binh Carter PA-C - Last Filed: 01/15/25 14:17>
-
Portions of this chart may have been created with voice recognition software.� Occasional wrong word or��sound alike� substitutions may have occurred due to the inherent limitations of voice recognition software.
<Abad Martinez DO - Last Filed: 01/15/25 13:59>
ED Attending Note
Patient seen and examined by attending physician: Yes
I performed the substantive portion of visit, reviewed & personally made and approve the management plan that is documented in note by myself or GLORIA.: Yes
ED Attending Note:
Hemoglobin normal, on Eliquis, CTA shows no definite acute intestinal bleed. The patient is well-appearing. However given ongoing bleeding while in the emerged part will recommend keeping patient in the hospital as patient is also on Eliquis and
has advanced age.
Discharge Plan
Departure
Patient Disposition: Admit
Date of Disposition: 01/15/25
Time of Disposition: 10:34
Admit to: Med/Surg
Presentation/result/management discussed w/ accepting MD/DO: Hospitalist
Discharge Problem:
Acute lower GI bleeding
Interventions
Interventions:
*Risk Screen - Suicide Last Done: 01/15/25 06:57
*General Assessment Last Done: 01/15/25 07:33
*Neglect/Abuse Screening Last Done: 01/15/25 06:57
*ED- Fall Risk Assessment Last Done: 01/15/25 07:33
*ED COVID-19 Vaccine History Last Done: 01/15/25 07:33
*ED Influenza Vaccine History Last Done: 01/15/25 07:33
YC-Hwbdcb-Ybvdeleysf Assessment Last Done: 01/15/25 08:42
ED- Cardiac Assessment Last Done: 01/15/25 08:42
ED- Pulmonary Assessment Last Done: 01/15/25 08:42
--- NOTE | 2025-01-15 07:59 | ED TECH ---
A STROKE ALERT was called@7:58 am Per Krishna Chamorro, Cat Scan Notified.
[2025-01-15 08:00] LABS: Hematocrit 41.1 % (39.0-52.0); Hemoglobin 13.0 g/dL (13.0-18.0); Mean Corp Hgb Conc. 31.6 g/dL (33.0-37.0); Mean Corpuscular Volume 94.7 fL (80.0-94.0); Nucleated Red Blood Cells % 0 % (-); Platelet Count 196 10^3/uL (130-400); Red Cell Dist. Width 14.2 % (11.5-14.5)
[2025-01-15 08:15] LABS: ALT (SGPT) 20 U/L (0-50); AST (SGOT) 17 U/L (17-59); Albumin 3.4 g/dl (3.5-5.0); Alkaline Phosphatase 48 U/L (38-126); Blood Urea Nitrogen 28 mg/dl (9-20); Calcium 8.7 mg/dl (8.4-10.2); Carbon Dioxide 29 mmol/L (22-30); Chloride 109 mmol/L (98-107); Estimated Creatinine Clearance 42 ml/min; Glucose 111 mg/dl (70-99); Potassium 4.6 mmol/L (3.5-5.1); Sodium 139 mmol/L (135-145); Total Protein 5.9 g/dl (6.3-8.2); eGFR > 60.00
--- NOTE | 2025-01-15 12:50 | CON.GI ---
Consultation
-
Date/Time Consultation Requested: 01/15/25
Date/Time Consultation Performed: 01/15/25
Requesting Provider: Fabiola Moralez
Performing Provider: Jennifer Johnston
Reason for Consultation: Rectal bleeding
Medical History
Chief Complaint / HPI
Chief Complaint: Painless hematochezia
History of Present Illness:
Mateo Ivey is an 84 y.o. male with past medical history of COPD, , CHF, CAD, HTN, HLD, colon polyps who presents for multiple episodes of rectal bleeding. He reports the bleeding started yesterday, states he has had approximately 10 large
volume bloody stools. He denies abdominal pain. He is on eliquis, last dose was this morning. Hemoglobin 13, previously 15.5 on 12/12/24, MCV 94.7, Plt 196, BUN elevated to 28, Cr. 1.2. He reports 2 very small bloody BMs ('a drop of blood') since
arrival. No prior history of GI bleeding. He is on miralax daily with prn use of colon cleanse, moves his bowels daily, soft and loose in consistency. Unfortunately, patient's brother suddenly after recent diagnosis of NHL and initiation
of treatment, the is scheduled on Friday in [place].
He follows with Dr. Pyle as an outpatient, last seen on 09/20/24, at which time he reported generalized fatigue, abdominal pain, nausea, vomiting, etiology felt to be multifactorial. He has a known history of barretts, on PPI.
Past Medical History
Past Medical History: Other (COPD, , CHF, CAD, HTN, HLD, colon polyps)
Past Surgical History: Other (AVR, hernia repair, b/l hip replacement)
Social History
Tobacco: Non-Smoker
Alcohol: None
Drug: None
Living: With Family
Family History
Family History: Reviewed & Not Pertinent
Allergies / Home Medications
Allergy/AdvReac Type Severity Reaction Status Date / Time
hydrochlorothiazide Allergy Unknown Verified 01/15/25 06:57
spironolactone Allergy Rash Verified 01/15/25 06:57
Sulfa (Sulfonamide Allergy Unknown Verified 01/15/25 06:57
Antibiotics)
carvedilol AdvReac DEPRESSION Verified 01/15/25 06:57
codeine AdvReac SEDATED Verified 01/15/25 06:57
metoprolol AdvReac DEPRESSION Verified 01/15/25 06:57
promethazine AdvReac SEDATED Verified 01/15/25 06:57
�Medication �Instructions �Recorded
ascorbic acid (vitamin C) 500 mg 500 mg PO DAILY Supplement 11/16/19
tablet (Vitamin C)
cholecalciferol (vitamin D3) 25 1,000 unit PO DAILY Supplement 11/16/19
mcg (1,000 unit) capsule (Vitamin
D3)
cyanocobalamin (vitamin B-12) 2,500 mcg PO DAILY Supplement 11/16/19
2,500 mcg tablet
aripiprazole 5 mg tablet (Abilify) 5 mg PO DAILY Mental Health/Anxiety 01/22/21
dapagliflozin propanediol 10 mg 10 mg PO DAILY Heart Failure 01/22/21
tablet (Farxiga)
linaclotide 72 mcg capsule 72 mcg PO DAILY@0600 constipation 12/23/22
(Linzess)
polyethylene glycol 3350 17 gram 17 g PO DAILY Constipation 04/30/23
oral powder packet (HealthyLax)
albuterol sulfate 90 mcg/actuation 2 puff inhalation R Q6HPRN PRN 10/02/23
aerosol inhaler shortness of breath or wheezing
apixaban 5 mg tablet (Eliquis) 5 mg PO BID Blood Clot 10/02/23
Prevention/Tx
atorvastatin 10 mg tablet 10 mg PO DAILY High Cholesterol 10/02/23
coQ10 (ubiquinol) 100 mg capsule 200 mg PO DAILY Supplement 10/02/23
mirtazapine 15 mg tablet 15 mg PO HS Mental Health/Anxiety 10/02/23
suvorexant 20 mg tablet (Belsomra) 20 mg PO HS Sleep 10/02/23
vilazodone 10 mg tablet 10 mg PO DAILY Mental 10/02/23
Health/Anxiety
clonazepam 0.5 mg tablet 0.25 mg (1/2 x 0.5 mg) PO TIDPRN 09/17/24
PRN anxiety #0 tabs
sacubitril 97 mg-valsartan 103 mg 1 tab PO BID #60 tabs 09/17/24
tablet (Entresto)
Review of Systems
-
History Source: Patient and Family ()
All other systems: A 12 pt ROS was Negative except as stated above in HPI
Vital Signs
Temp Pulse Resp BP Pulse Ox
97.7 F 80 19 147/99 96
01/15/25 06:57 01/15/25 12:45 01/15/25 12:45 01/15/25 12:38 01/15/25 12:45
Physical Exam
Exam
General: Well Developed, Well Nourished, No Apparent Distress and Comfortable
GI: Soft, Non Tender, Normal Bowel Sounds and Other
Results
WBC 7.3 10^3/uL (4.8-10.8) 01/15/25 07:43
Hgb 13.0 g/dL (13.0-18.0) 01/15/25 07:43
Hct 41.1 % (39.0-52.0) 01/15/25 07:43
MCV 94.7 fL (80.0-94.0) H 01/15/25 07:43
Plt Count 196 10^3/uL (130-400) 01/15/25 07:43
Absolute Neuts (auto) 4.8 10^3/uL (1.4-6.5) 01/15/25 07:43
Sodium 139 mmol/L (135-145) 01/15/25 07:43
Potassium 4.6 mmol/L (3.5-5.1) 01/15/25 07:43
Chloride 109 mmol/L (98-107) H 01/15/25 07:43
Carbon Dioxide 29 mmol/L (22-30) 01/15/25 07:43
BUN 28 mg/dl (9-20) H 01/15/25 07:43
Creatinine 1.2 mg/dL (0.7-1.3) 01/15/25 07:43
Calcium 8.7 mg/dl (8.4-10.2) 01/15/25 07:43
Total Bilirubin 0.4 mg/dl (0.2-1.3) 01/15/25 07:43
AST 17 U/L (17-59) 01/15/25 07:43
ALT 20 U/L (0-50) 01/15/25 07:43
Alkaline Phosphatase 48 U/L (38-126) 01/15/25 07:43
Diagnostic Image Results:
Prior GI Procedures:
EGD:
-EGD (2021, Dr. Granados)-LA grade A esophagitis, biopsies showed mild to moderate chronic inflamm and extensive IM, neg for dysplasia. 2 cm hiatal hernia. Moderate antral gastritis, biopsies neg for HP and IM, mild chronic inactive gastritis.
Normal duodenum, biopsies showed intact villous architecture and no increase in IELs.
Colonoscopy:
-Colonoscopy (2021, Dr. Granados): Normal TI. Melanosis in the colon. Diverticulosis in the sigmoid and descending colon. 9 mm TA in the proximal AC. 8 mm TA in the distal AC.
-Colonoscopy (2016, Dr. Granados): Normal TI. Melanosis in the colon. Mild diverticulosis in the sigmoid colon and descending colon. 8 mm TA in the transverse colon, hyperplastic polyp in the rectum
-Colonoscopy (2012, Dr. Granados): Diverticulosis in the sigmoid and descending colon. 2x Traditional SSA in the rectum, 2x hyperplastic polyps in the rectum
Assessment / Plan
-
84 y.o. male with past medical history of COPD, , CHF, CAD, HTN, HLD, colon polyps, barretts esophagus admitted with multiple episodes of painless hematochezia.
#Hematochezia-- suspect diverticular vs. hemorrhoidal vs. AVM vs. diuelafoy vs less likely ischemic, malignancy
-Last colonoscopy in 2021 with polyps, diverticulosis
-Hemoglobin 13-- seems to have some degree of erythrocytosis with hgb in the 15-16 range; will repeat tonight and monitor for recurrance of bleeding in next 24 hours
-Given decreased bleeding since arrival, suspect bleeding has stopped
-last dose of eliquis 10 AM
-IV PPI q12 hours
-transfuse for Hgb <8
-okay for clear liquids, advance in AM if no bleeding/stable Hgb
-If stable hemoglobin and no significant bleeding in next 24 hours, okay for outpatient colonoscopy
#Barretts Esophagus
-follows outpatient with Dr. Pyle
-continue daily PPI indefinitively
Data Reviewed
-
Old Records: Reviewed
-
-
Thank you for consultation and allowing me to participate in the patient's care. Please call the information systems consultant GI physician during the after hours with any questions or concerns.
--- NOTE | 2025-01-15 12:56 | HPS.HSE ---
Family Physician
-
Family Physician: Abdullahi Ogden
Chief Complaint
-
Blood in stool
History of Present Illness
84M with s/p bioprosthetic AVR, A-fib on Eliquis, ischemic cardiomyopathy with EF 20%, PPM/AICD, recent placement of Barostim, recent Mohs surgery, anxiety/depression, presenting with blood in stool since yesterday morning. Notes 10 episodes
since yesterday morning of bright red blood mixed with stool, unsure of color of stool. Denies lightheadedness, chest pain, shortness of breath, abdominal pain, nausea, vomiting. Denies hematuria or hemoptysis. Denies eating anything out of the
ordinary. Patient is taking his Eliquis twice a day as directed and no additional doses, after his Mohs surgery 2 weeks ago he was advised to take Advil PRN pain denies any other blood thinner use.
Medical History
Past Medical History
Past Medical History: Reports Other (hypertension, hyperlipidemia, CAD, aortic stenosis status post TAVR, chronic HFrEF status post biventricular ICD, left bundle branch block,, atrial fibrillation, obstructive sleep apnea, recent left shoulder
replacement, IBS/constipation, anxiety/depression)
Past Surgical History: Reports Other (Cardiac (Aortic valve replaced) and Other (Hernia repair, aortic valve replacement with a bovine valve, sternal dehiscence with repeat operation, status post bilateral hip replacements))
Social History
Tobacco: Non-smoker
Alcohol: None
Drug: None
Family History
Family History: Not pertinent (Denies any issues)
Allergies / Home Medications
Allergies reflects when Allergies were last updated in [facility].
Home Medications with original date entered in [facility]
Allergy/Medication List:
Allergies
Allergy/AdvReac Type Severity Reaction Status Date / Time
hydrochlorothiazide Allergy Unknown Verified 01/15/25 06:57
spironolactone Allergy Rash Verified 01/15/25 06:57
Sulfa (Sulfonamide Allergy Unknown Verified 01/15/25 06:57
Antibiotics)
carvedilol AdvReac DEPRESSION Verified 01/15/25 06:57
codeine AdvReac SEDATED Verified 01/15/25 06:57
metoprolol AdvReac DEPRESSION Verified 01/15/25 06:57
promethazine AdvReac SEDATED Verified 01/15/25 06:57
Home Medications
ascorbic acid (vitamin C) 500 mg tablet (Vitamin C) 500 mg PO DAILY Supplement 11/16/19
cholecalciferol (vitamin D3) 25 mcg (1,000 unit) capsule (Vitamin D3) 1,000 unit PO DAILY Supplement 11/16/19
cyanocobalamin (vitamin B-12) 2,500 mcg tablet 2,500 mcg PO DAILY Supplement 11/16/19
aripiprazole 5 mg tablet (Abilify) 5 mg PO DAILY Mental Health/Anxiety 01/22/21
dapagliflozin propanediol 10 mg tablet (Farxiga) 10 mg PO DAILY Heart Failure 01/22/21
linaclotide 72 mcg capsule (Linzess) 72 mcg PO DAILY@0600 constipation 12/23/22
polyethylene glycol 3350 17 gram oral powder packet (HealthyLax) 17 g PO DAILY Constipation 04/30/23
albuterol sulfate 90 mcg/actuation aerosol inhaler 2 puff inhalation R Q6HPRN PRN shortness of breath or wheezing 10/02/23
apixaban 5 mg tablet (Eliquis) 5 mg PO BID Blood Clot Prevention/Tx 10/02/23
atorvastatin 10 mg tablet 10 mg PO DAILY High Cholesterol 10/02/23
coQ10 (ubiquinol) 100 mg capsule 200 mg PO DAILY Supplement 10/02/23
mirtazapine 15 mg tablet 15 mg PO HS Mental Health/Anxiety 10/02/23
suvorexant 20 mg tablet (Belsomra) 20 mg PO HS Sleep 10/02/23
vilazodone 10 mg tablet 10 mg PO DAILY Mental Health/Anxiety 10/02/23
clonazepam 0.5 mg tablet 0.25 mg (1/2 x 0.5 mg) PO TIDPRN PRN anxiety #0 tabs 09/17/24
sacubitril 97 mg-valsartan 103 mg tablet (Entresto) 1 tab PO BID #60 tabs 09/17/24
Finasteride 5 mg
Review of Systems
-
A 12 point ROS was completed and negative except as noted: Yes
Physical Exam
Vital Signs
Vital Signs
Temp Pulse Resp BP Pulse Ox
98.0 F 80 19 147/99 96
01/15/25 12:50 01/15/25 12:45 01/15/25 12:45 01/15/25 12:38 01/15/25 12:45
Physical Exam
General: No Apparent Distress
HEENT: Moist mucous membranes, PERRLA and Other (Dressing on forehead, clean dry intact)
Respiratory: Clear; No Wheezes, Rales or Rhonchi
Cardiac: S1/S2 and Regular Rhythm
GI: Soft, Non Tender, Non Distended and Normal Bowel Sounds
Musculoskeletal: No Edema
Skin: Warm and Dry; No Rash, Jaundice or Ulcers
Neuro: Awake and AO x 3
Hematologic/Lymphatic: No Lymphadenopathy
Psych: Calm
Laboratory Results
-
01/15/25 07:43
01/15/25 07:43
Laboratory Results
Total Bilirubin 0.4 mg/dl (0.2-1.3) 01/15/25 07:43
AST 17 U/L (17-59) 01/15/25 07:43
ALT 20 U/L (0-50) 01/15/25 07:43
Alkaline Phosphatase 48 U/L (38-126) 01/15/25 07:43
Data Reviewed
-
CT Scan: Report Reviewed by me, Discussed with Patient and Discussed with Family
Lab Data: Labs Reviewed by me, Discussed with Patient and Discussed with Family
Old Records: Reviewed
Impression/Plan
-
IMPRESSION:
84M with s/p bioprosthetic AVR, A-fib on Eliquis, nonischemic cardiomyopathy with EF 20%, PPM/AICD, recent placement of Barostim, recent Mohs surgery, anxiety/depression P/W acute lower GI bleeding.
PLAN:
Acute lower GI bleeding
Hemodynamically stable, Hgb 13. No hemorrhoid per GI exam and patient history.
CTA A/P performed with no active bleeding, notably has marked diverticulosis, which could be the cause.
Monitor H&H
Consult GI for possible colonoscopy
N.p.o. with ice chips until their evaluation
Hold Eliquis with plans to resume once bleeding has stopped/evaluation is complete given his AF and prosthetic valve
Given normal BP and history of CHF, will hold off IV fluids for now
Hold off bowel regimen
NICM/HFrEF - chronic, EF 25-30%
Not appear to be in exacerbation
S/p PPM/ICD. S/p recent Barostim 1 month ago
Continue Entresto and Farxiga. Only on Lasix as needed. Daily weights.
Aortic stenosis
- s/p bio prosthetic bovine AVR 02/2015.
Holding Eliquis as above
Permanent Afib
Rate controlled, not on rate or rhythm control agents, holding Eliquis.
Anxiety/depression
Continue Abilify, mirtazapine, clonazepam, confirmed on PEDIATRIC NURSE PRACTITIONER
BPH
Finasteride
DVT prophylaxis
SCDs
DNR
--- NOTE | 2025-01-15 13:10 | EDCM ---
CM reviewed chart and met with pt and bedside in ED. Lives with his in 1 story home, [address].
Independent in ADLs, personal care and ambulation at baseline. Ambulates with walker, still driving.
Also has Commode, Wheelchair, shower chair and shower grab rails.
Confirms prescription coverage.
Hx DHVN, no hx SNF, hx outpatient physical therapy.
PCP: Abdullahi Ogden
Pharmacy: [facility].
Anticipate discharge home, CM will continue to follow for all discharge planning needs.
[2025-01-15 20:26] LABS: Hematocrit 42.2 % (39.0-52.0); Hemoglobin 13.8 g/dL (13.0-18.0); Mean Corp Hgb Conc. 32.7 g/dL (33.0-37.0); Mean Corpuscular Volume 92.1 fL (80.0-94.0); Nucleated Red Blood Cells % 0 % (-); Platelet Count 205 10^3/uL (130-400); Red Cell Dist. Width 14.2 % (11.5-14.5)
[2025-01-15] MEDS: PROTONIX IV 40 MG IV (20:31)
[2025-01-15] MEDS: NSS (PRESERVATIVE FREE) 10 ML IV (20:31)
[2025-01-15] MEDS: ENTRESTO 97 MG/103 MG 1 TAB PO (20:39)
[2025-01-15] MEDS: REMERON 15 MG PO (20:43)
[2025-01-15 20:46] LABS: Iron 112 ug/dl (49-181)
[2025-01-15 20:55] LABS: Total Iron Binding Capacity 276 ug/dl (261-462)
[2025-01-15 21:22] LABS: Ferritin 80.4 ng/ml (17.9-464.0)
[2025-01-16 03:00] VITALS: BP 162/91
[2025-01-16 05:40] VITALS: BMI 25.5
[2025-01-16 07:51] LABS: Hematocrit 51.4 % (39.0-52.0); Hemoglobin 16.2 g/dL (13.0-18.0); Mean Corp Hgb Conc. 31.5 g/dL (33.0-37.0); Mean Corpuscular Volume 94.3 fL (80.0-94.0); Platelet Count 230 10^3/uL (130-400); Red Cell Dist. Width 14.4 % (11.5-14.5)
[2025-01-16 08:00] VITALS: BP 158/100
[2025-01-16] MEDS: ENTRESTO 97 MG/103 MG 1 TAB PO (08:16)
[2025-01-16] MEDS: NSS (PRESERVATIVE FREE) 10 ML IV (08:16)
[2025-01-16] MEDS: LIPITOR 10 MG PO (08:16)
[2025-01-16] MEDS: ABILIFY 5 MG PO (08:16)
[2025-01-16] MEDS: PROTONIX IV 40 MG IV (08:16)
[2025-01-16] MEDS: PROSCAR 5 MG PO (08:16)
[2025-01-16 08:17] LABS: Blood Urea Nitrogen 14 mg/dl (9-20); Calcium 9.4 mg/dl (8.4-10.2); Carbon Dioxide 27 mmol/L (22-30); Chloride 107 mmol/L (98-107); Estimated Creatinine Clearance 56 ml/min; Glucose 91 mg/dl (70-99); Potassium 3.9 mmol/L (3.5-5.1); Sodium 141 mmol/L (135-145); eGFR > 60.00
--- NOTE | 2025-01-16 08:34 | W.PN.GI.CBS2 ---
Today's Communication / Plan
-
Advance diet. Okay to resume eliquis. Outpatient colonoscopy on Friday with Dr. Leyva. Will need to hold eliquis 48 hours prior to procedure.
Assessment / Plan
-
84 y.o. male with past medical history of COPD, , CHF, CAD, HTN, HLD, colon polyps, barretts esophagus admitted with multiple episodes of painless hematochezia.
#Hematochezia-- suspect diverticular vs. hemorrhoidal vs. AVM vs. diuelafoy vs less likely ischemic, malignancy
-Last colonoscopy in 2021 with polyps, diverticulosis
-Hemoglobin 13 on arrival, repeat 13.8 -->16.2 this morning;- seems to have some degree of erythrocytosis with hgb in the 15-16 range upon review of prior labs
-Given amount of blood seen on toilet paper today and improved hgb, I am reassured that the bleeding has subsided, likely old blood he is seeing now
-last dose of eliquis 01/15 AM
-will change to PO PPI once daily
-transfuse for Hgb <8
-advance diet, okay for d/c today. Recommend outpatient colonoscopy-- will schedule for Friday, 01/[address] Pyle. He will need to hold eliquis 48 hours before procedure. Okay to resume eliquis today
-our office will reach out to him to schedule him for procedure and go over prep and medication instructions
#Barretts Esophagus
-follows outpatient with Dr. Pyle
-continue daily PPI indefinitively
Subjective
Subjective
Date of Service: January 16, 2025
Patient seen early this AM right after he had a BM. Brown stool with bright red blood on the toilet paper only. Repeat hgb last night with hgb 13.8, this morning, hemoglobin 16.2. He remains hemodynamically stable.
Objective
Data Reviewed
Laboratory Data:
Laboratory Results
01/16/25 07:21
01/16/25 07:21
Laboratory Results
Total Bilirubin 0.4 mg/dl (0.2-1.3) 01/15/25 07:43
AST 17 U/L (17-59) 01/15/25 07:43
ALT 20 U/L (0-50) 01/15/25 07:43
Alkaline Phosphatase 48 U/L (38-126) 01/15/25 07:43
Vital Signs and I&O:
Vital Signs
Temp Pulse Resp BP Pulse Ox
97.8 F 90 18 162/91 96
01/16/25 03:00 01/16/25 03:00 01/16/25 03:00 01/16/25 03:00 01/16/25 03:00
Physical Exam
Physical Exam
HEENT: Anicteric and Moist mucous membranes
GI: Soft, Non Distended and Non Tender
[2025-01-16] MEDS: ELIQUIS 5 MG PO (10:07)
--- NOTE | 2025-01-16 10:48 | W.DCSUMMARY ---
Discharge Summary
Discharge Data
Date of Admission: 01/15/25
Date of Discharge: 01/16/25
Total time spent discharging patient (in min): 31
-
Pending Results: No
Hospital Course
Attending physician on day of discharge:
Fabiola Moralez MD
Admission diagnosis:
Acute lower GI bleeding
Discharge diagnosis:
Hematochezia
Secondary diagnoses:
s/p bioprosthetic AVR, A-fib on Eliquis, ischemic cardiomyopathy with EF 20%, PPM/AICD, recent placement of Barostim, recent Mohs surgery, anxiety/depression, Gil's esophagus
Consultations:
GI Dr. Johnston
Procedures:
None
Hospital course:
84M with prosthetic AVR, A-fib on Eliquis, Gil's esophagus, presenting with BRBPR. Eliquis was held, patient subsequently only had some residual blood, hemoglobin was stable, BP was stable. GI was consulted, no acute intervention recommended,
Eliquis resumed, diet advanced to low residue, outpatient colonoscopy to be performed later this week. Patient advised to recheck his BPs at home and to call his outpatient sql database programmer if they remain elevated.
Diagnostic Findings:
CT A/P:
No findings to suggest acute intestinal hemorrhage, evaluation of distal large bowel markedly limited by beam hardening artifact from bilateral hip arthroplasties.
Stable left lower lobe 3 mm pulmonary nodule, considered benign.
Additional nonurgent findings, as detailed above, some of which include distal colonic diverticulosis and small bilateral simple renal cysts.
Physical exam on discharge:
Gen: NAD
HEENT: PERRLA, EOMI, MMM, neck supple
Cards: RRR, no M/G/R
Resp: Lungs CTAB, no W/R/R
GI: soft, NT/ND/NABS
MSK: No edema
Skin: warm and dry, no rash, ulcer or lesions
Heme: No LAD
Psych: Calm
Neuro: AAOx3
Discharge disposition:
Home
Discharge Plan
-
Patient Disposition: Home (Routine Discharge)
Discharge Diagnosis/Procedures: Acute lower GI bleeding
Diet: Low Residue
Activity: As tolerated
Others Tests: Colonoscopy Friday01/21/25 - GI office will call you and send you instructions and prep prescription
Instructions: Low-fiber diet
Referrals:
Mayo Pyle MD [Active, Gastroenterology] - 01/21/25
Referral Note: Colonoscopy on 01/21, our office will call with instructions. Hold eliquis for 48 hours prior to procedure.
Abdullahi Ogden MD [Family Provider, Internal Medicine]
Rosio Johnston DO [Active, Gastroenterology]
Additional Discharge Medication Instructions: Resume elqiuis but HOLD 2 days prior to colonoscopy. Low residue diet. Blood pressure was elevated while here, continue entresto and check BP at home, call sql database programmer Friday if remains elevated.
Prescriptions:
Continued
ascorbic acid (vitamin C) [Vitamin C] 500 MG tablet
500 mg PO DAILY
cholecalciferol (vitamin D3) [Vitamin D3] 1,000 UNIT capsule
1,000 unit PO DAILY
dapagliflozin propanediol [Farxiga] 10 MG tablet
10 mg PO DAILY
polyethylene glycol 3350 [HealthyLax] 17 gram powder in packet
17 g PO HS
atorvastatin 10 mg Tablet
10 mg PO QPM
coQ10 (ubiquinol) 100 mg Capsule
100 mg PO DAILY
Eliquis 5 mg tablet
5 mg PO BID
clonazepam 0.5 mg tablet
0.25 mg PO BID
cyanocobalamin (vitamin B-12) 1,000 mcg Tablet
1,000 mcg PO DAILY
therapeutic multivitamin Tablet
1 tab PO DAILY
acetaminophen 500 mg Tablet
1,000 mg PO DAILYPRN PRN (Reason: mild pain)
ibuprofen 200 mg Tablet
600 mg PO DAILYPRN PRN (Reason: mild pain)
finasteride 5 mg tablet
5 mg PO DAILY
Saline Nasal 0.65 % Aerosol,[place]
1 spray INTRANASAL DAILYPRN PRN (Reason: dry sinuses)
vilazodone 40 mg tablet
40 mg PO DAILY
sacubitril-valsartan [Entresto] 49-51 mg tablet
1 tab PO BID
Super Cleanse
1 tab PO DAILY
Patient Comments:
herbal laxative, 'proprietary blend'
Discharge Orders:
Discharge Patient (As Directed); Ordered 01/16/25
Ordered By: Fabiola Moralez
Discharge Date and Time
Print Language: WOLOF
[2025-01-16 10:58] VITALS: BMI 25.5
--- NOTE | 2025-01-16 11:05 | CM ---
CM reviewed chart, patient seen bedside with , for d/c today.
Patient denies needs, confirms will transport home.
IMM verbally reviewed, provided with copy, placed in chart.
CM will continue to follow.
Plan; home no needs
== END 2025-01-16 11:57 | disposition home or self-care (01) | DRG 378 ==
LOC: 4 WEST ACU 12:46
PROVIDERS: Physician Assistant; ADMITTING PHYSICIAN Internal Medicine; CONSULT PHYSICIAN Internal Medicine; EMERGENCY PHYSICIAN Emergency Medicine; FAMILY PHYSICIAN Internal Medicine Geriatric Medicine
DX: K92.1 Melena (principal); I48.21 Permanent atrial fibrillation; I50.22 Chronic systolic (congestive) heart failure; I25.5 Ischemic cardiomyopathy; Z95.3 Presence of xenogenic heart valve; F32.A Depression, unspecified; F41.9 Anxiety disorder, unspecified; K22.70 Barrett's esophagus without dysplasia; R91.1 Solitary pulmonary nodule; J44.9 Chronic obstructive pulmonary disease, unspecified; I25.10 Atherosclerotic heart disease of native coronary artery without angina pectoris; I11.0 Hypertensive heart disease with heart failure; Z86.0100 Personal history of colon polyps, unspecified; E78.00 Pure hypercholesterolemia, unspecified; Z88.2 Allergy status to sulfonamides; Z79.899 Other long term (current) drug therapy; Z79.01 Long term (current) use of anticoagulants; Z82.61 Family history of arthritis; Z96.612 Presence of left artificial shoulder joint; Z96.643 Presence of artificial hip joint, bilateral; I44.7 Left bundle-branch block, unspecified; N40.0 Benign prostatic hyperplasia without lower urinary tract symptoms; G47.33 Obstructive sleep apnea (adult) (pediatric)
CPT/HCPCS: 74174; 80048; 80053; 82728; 83540; 83550; 85025; 85027; 86850; 86900; 86901; 87045; 87046; 87324; 87427; 87449; 99284; Q9967

== ENCOUNTER → 2025-01-22 07:56 | Outpatient (REF) | payer MEDICARE, OTHER, SELFPAY ==
[2025-01-22 09:12] LABS: Hematocrit 37.0 % (39.0-52.0); Hemoglobin 11.9 g/dL (13.0-18.0); Mean Corp Hgb Conc. 32.2 g/dL (33.0-37.0); Mean Corpuscular Volume 97.6 fL (80.0-94.0); Nucleated Red Blood Cells % 0 % (-); Platelet Count 248 10^3/uL (130-400); Red Cell Dist. Width 14.9 % (11.5-14.5)
== END ==
LOC: REG 07:56
PROVIDERS: ATTENDING PHYSICIAN Internal Medicine Gastroenterology; FAMILY PHYSICIAN Internal Medicine Geriatric Medicine
DX: R58 Hemorrhage, not elsewhere classified (principal)
CPT/HCPCS: 36415; 85025

== ENCOUNTER → 2025-02-04 08:32 | Outpatient (REF) | payer MEDICARE, OTHER, SELFPAY ==
[2025-02-04 09:40] LABS: Hematocrit 41.4 % (39.0-52.0); Hemoglobin 13.2 g/dL (13.0-18.0); Mean Corp Hgb Conc. 31.9 g/dL (33.0-37.0); Mean Corpuscular Volume 93.9 fL (80.0-94.0); Nucleated Red Blood Cells % 0 % (-); Platelet Count 265 10^3/uL (130-400); Red Cell Dist. Width 14.8 % (11.5-14.5)
== END ==
LOC: REG 08:32
PROVIDERS: ATTENDING PHYSICIAN Internal Medicine Gastroenterology; FAMILY PHYSICIAN Internal Medicine Geriatric Medicine
DX: R58 Hemorrhage, not elsewhere classified (principal)
CPT/HCPCS: 36415; 85025

== ENCOUNTER → 2025-02-11 07:04 | Outpatient (REF) | payer MEDICARE, OTHER, SELFPAY ==
[2025-02-11 09:15] LABS: ALT (SGPT) 23 U/L (0-50); AST (SGOT) 22 U/L (17-59); Albumin 4.0 g/dl (3.5-5.0); Alkaline Phosphatase 64 U/L (38-126); Blood Urea Nitrogen 14 mg/dl (9-20); Calcium 9.0 mg/dl (8.4-10.2); Carbon Dioxide 24 mmol/L (22-30); Chloride 106 mmol/L (98-107); Glucose 90 mg/dl (70-99); Potassium 3.7 mmol/L (3.5-5.1); Sodium 136 mmol/L (135-145); Total Protein 6.7 g/dl (6.3-8.2); eGFR > 60.00
== END ==
LOC: REG 07:04
PROVIDERS: ATTENDING PHYSICIAN Internal Medicine Advanced Heart Failure and Transplant Cardiology; FAMILY PHYSICIAN Internal Medicine Geriatric Medicine
DX: I50.9 Heart failure, unspecified (principal)
CPT/HCPCS: 36415; 80053; 83880